=== PATIENT | female | born 1980 | race Caucasian/White ===

== ENCOUNTER 2017-02-23 14:31 | Emergency (ER) | payer OTHER ==
[2017-02-23 14:51] VITALS: BP 143/99
[2017-02-23] MEDS ORDERED: Alum Hydrox/Mag Hydrox/Simeth 30 ML, Lidocaine 2% 15 ML PO ONE ×2 (14:52)
--- NOTE | 2017-02-23 14:53 | EDM.PDOC ---
ED HPI GENERAL MEDICAL PROBLEM - General Chief Complaint: Abdominal Pain Stated Complaint: Epigastric pain Time Seen by Provider: 02/23/17 14:40 Source of Information: Reports: Patient, RN Notes Reviewed History Limitations: Reports: No Limitations - History of Present Illness INITIAL COMMENTS - FREE TEXT/NARRATIVE: 36 year old female presents to the ED for evaluation of epigastric pain. She initially presented to [facility]. She reports seeing a nurse, no provider, and was sent here for cardiac rule out. She's been experiencing epigastric burning that radiates up into her throat for the past few days. The symptoms seem to be worse on an empty stomach and improve with eating. However, they are aggravated by caffeine and spicy foods. She also feels bloated and is "belching" a lot. She has a history of IBS and says she is mildly constipated. Last BM was 1-2 days ago. No fever, chills, nausea, vomiting or diarrhea. She also reports some chest wall tenderness that is reproducible with palpation. This pain also goes into her bilateral axilla. She has no cough, shortness of breath or dyspnea with exertion. She has no history of heart disease. She's never smoked. No history of high cholesterol. She has a history of heart burn and says her symptoms are the same. She's tried Prilosec x2 days and TUMS with minimal improvement. She has a history of MS and was recently started on a new medication which she feels may be upsetting her stomach. - Related Data Allergies Allergy/AdvReac Type Severity Reaction Status Date / Time lactose AdvReac Stomach Verified 02/23/17 14:51 Ache Home Meds: Home Meds Teriflunomide [Aubagio] 14 mg PO DAILY 02/23/17 [History] ED ROS GENERAL - Review of Systems Review Of Systems: See Below Constitutional: Reports: No Symptoms. Denies: Fever, Chills, Diaphoresis HEENT: Denies: Throat Pain, Throat Swelling Respiratory: Reports: No Symptoms. Denies: Shortness of Breath, Cough Cardiovascular: Reports: No Symptoms. Denies: Chest Pain GI/Abdominal: Reports: Abdominal Pain, Constipation. Denies: Diarrhea, Distension, Nausea, Vomiting Musculoskeletal: Reports: Muscle Pain ED EXAM, GI/ABD - Physical Exam Exam: See Below Exam Limited By: No Limitations General Appearance: Alert, WD/WN, No Apparent Distress Respiratory/Chest: No Respiratory Distress, Lungs Clear, Normal Breath Sounds, No Accessory Muscle Use, Other (mild tenderness with palpation to anterior and posterior chest wall. pain is reproducible. patient is able to tolerate the palpation and does not appear in pain. ) Cardiovascular: Normal Peripheral Pulses, Regular Rate, Rhythm, No Edema, No Murmur GI/Abdominal Exam: Normal Bowel Sounds, Soft, No Organomegaly, No Distention, Tender (mild to LUQ and epigastric region) Back Exam: Normal Inspection, Full Range of Motion, Paraspinal Tenderness (left lower chest wall ). No: CVA Tenderness (L), CVA Tenderness (R) Neurological: Alert, Oriented, Normal Cognition EKG INTERPRETATION EKG Date: 02/23/17 Time: 14:59 Rhythm: NSR Rate (Beats/Min): 77 [place]: Normal P-Wave: Present QRS: Normal ST-T: Normal QT: Normal EKG Interpretation Comments: Read by Dr. Hilton. Normal ECG. Course - Vital Signs Last Recorded V/S: Last Vital Signs Temp 98.5 F 02/23/17 14:46 Pulse 88 02/23/17 14:46 Resp 17 02/23/17 14:46 BP 143/99 H 02/23/17 14:46 Pulse Ox 100 02/23/17 14:46 - Orders/Labs/Meds Orders: Active Orders 24 hr Category Date Time Status EKG Documentation Completion [RC] ASDIRECTED Care 02/23/17 14:53 Ordered EKG 12 Lead [EK] Stat Ther 02/23/17 14:52 Ordered Meds: Medications Discontinued Medications Generic Name Dose Route Start Last Admin Trade Name Adriana PRN Reason Stop Dose Admin Al Hydroxide/Mg Hydroxide 30 0 ml 02/23/17 14:52 02/23/17 15:14 ml/ Lidocaine HCl 15 ml PO 02/23/17 14:53 45 ml ONETIME ONE Administration - Re-Assessments/Exams Free Text/Narrative Re-Assessment/Exam: Vitals and EKG normal. Patient was given GI cocktail with improvement in epigastric symptoms. Symptoms are consistent with GERD. Cardiac etiology is unlikely. Offered Rx for PPI but patient wishes to continue with Prilosec and Zantac or tums. She is mostly concerned about the chest wall pain which she says isn't abnormal for her. The pain is mild and reproducible with palpation, indicating musculoskeletal cause. Educated on supportive care and return precautions. Discharge instructions as documented. Departure - Departure Time of Disposition: 15:31 Disposition: Home, Self-Care 01 Condition: Good Clinical Impression: GERD (gastroesophageal reflux disease) Qualifiers: Esophagitis presence: without esophagitis Qualified Code(s): K21.9 - Gastro- esophageal reflux disease without esophagitis Constipation Qualifiers: Constipation type: unspecified constipation type Qualified Code(s): K59.00 - Constipation, unspecified - Discharge Information Instructions: Constipation, Adult Referrals: Christina Calzada PA-C [Primary Care Provider] - Forms: ED Department Discharge Additional Instructions: Continue Prilosec 20mg once a day for 2 weeks Take in the morning on an empty stomach, 1 hour before your first meal Zantac 150mg up to 3 times a day as needed for break through pain Tums as directed Over the counter laxatives/stool softeners to help regulate bowels Return to ER with new or worsening symptoms Follow-up with Christina Calzada in 1-2 weeks for recheck Avoid spicy foods, caffeine, alcohol - My Orders Last 24 Hours: My Active Orders 02/23/17 14:52 EKG 12 Lead [EK] Stat 02/23/17 14:53 EKG Documentation Completion [RC] ASDIRECTED - Assessment/Plan Last 24 Hours: My Active Orders 02/23/17 14:52 EKG 12 Lead [EK] Stat 02/23/17 14:53 EKG Documentation Completion [RC] ASDIRECTED
== END 2017-02-23 15:43 | disposition home or self-care (01) ==
LOC: JD.ED 14:31
DX: K21.9 Gastro-esophageal reflux disease without esophagitis (principal); K59.00 Constipation, unspecified; Z91.011 Allergy to milk products; Z79.899 Other long term (current) drug therapy
CPT/HCPCS: 93005; 99285; A9270; 93010; 99283

== ENCOUNTER 2017-12-13 14:15 | Emergency (ER) | payer OTHER ==
[2017-12-13 14:23] VITALS: BP 134/84
--- NOTE | 2017-12-13 15:28 | EDM.PDOC ---
ED HPI GENERAL MEDICAL PROBLEM - General Chief Complaint: Back Pain or Injury Stated Complaint: UPPER BACK PAIN/L ARM PAIN Time Seen by Provider: 12/13/17 15:08 Source of Information: Reports: Patient, Old Records History Limitations: Reports: No Limitations - History of Present Illness INITIAL COMMENTS - FREE TEXT/NARRATIVE: 37-year-old female presents for evaluation and treatment of reflux symptoms. Patient reports she's had similar symptoms in the past. Reports symptoms started about 4 days ago. She is reporting some pain in the epigastric area and across her upper abdomen. She is also having pain in between her shoulder blades into her left arm. She states that she frequently gets these symptoms with her reflux. She started Zantac and Prilosec for 4 days ago and has not had much relief. Reports in the past she has done well with Protonix. She attempted to see her primary care provider who wanted her checked out due to her left arm and back pain. She does not dose this is cardiac in etiology. She states that she has been belching more than normal. Reports the pain is a 3 out of 10. She reports some anterior chest pain with palpation. No fevers, chills, nausea, vomiting, throat pain or any shortness of breath. Reports past surgical history of a cholecystectomy. No previous EGD. That she has been tested for H. pylori in the past and has been negative. Treatments [employer]: Reports: Other (see below) Other Treatments [employer]: took motrin for pain control Upper Back Pain Score (Numeric/FACES): 3 - Related Data Allergies Allergy/AdvReac Type Severity Reaction Status Date / Time lactose AdvReac Stomach Verified 02/23/17 14:51 Ache Home Meds: Home Meds Teriflunomide [Aubagio] 14 mg PO DAILY 02/23/17 [History] Calcium Carbonate [Calcium] 600 mg PO DAILY 12/13/17 [History] Cholecalciferol (Vitamin D3) [Vitamin D3] 50,000 mg PO WEEKLY 12/13/17 [History] Cyanocobalamin (Vitamin B12) [Vitamin B12] 1,000 mg INJECT ASDIRECTED 12/13/17 [ History] Pantoprazole Sodium [Protonix] 40 mg PO DAILY #30 tablet. 12/13/17 [Rx] Timolol [Betimol] 1 drop TOP ASDIRECTED 09/14/18 [History] Past Medical History HEENT History: Reports: Other (See Below) Other HEENT History: retinal tear. vitreous detachment Respiratory History: Reports: Other (See Below) Other Respiratory History: hayfever Gastrointestinal History: Reports: GERD, Irritable Bowel Syndrome Musculoskeletal History: Reports: Other (See Below) Other Musculoskeletal History: fractured left ankle surgery Neurological History: Reports: MS - Past Surgical History GI Surgical History: Reports: Cholecystectomy Social & Family History - Family History Family Medical History: Noncontributory - Tobacco Use Smoking Status *Q: Never Smoker - Caffeine Use Caffeine Use: Reports: Soda - Recreational Drug Use Recreational Drug Use: No ED ROS GENERAL - Review of Systems Review Of Systems: See Below Constitutional: Denies: Fever, Chills HEENT: Denies: Throat Pain Respiratory: Denies: Shortness of Breath Cardiovascular: Denies: Chest Pain GI/Abdominal: Reports: Abdominal Pain (Epigastric and upper abdomen). Denies: Nausea, Vomiting Musculoskeletal: Reports: Arm Pain (left arm), Back Pain (pain in between shoulder blades and into left arm) ED EXAM, UPPER BACK/NECK PAIN - Physical Exam Exam: See Below Exam Limited By: No Limitations General Appearance: Alert, WD/WN, No Apparent Distress Throat/Mouth Exam: Normal Inspection, Normal Lips, Normal Teeth Neck Exam: Non-Tender Cardiovascular/Respiratory: Regular Rate, Rhythm, No M/R/G, Normal Peripheral Pulses GI/Abdominal: Soft, Non-Tender Neurologic: Alert, Normal Mood/Affect Psychiatric: Normal Affect, Normal Mood Skin Exam: Normal Color, Warm/Dry EKG INTERPRETATION EKG Date: 12/13/17 Time: 15:25 Rhythm: NSR Rate (Beats/Min): 72 [place]: Normal P-Wave: Present QRS: Normal ST-T: Normal QT: Normal EKG Interpretation Comments: Normal sinus rhythm at 72 bpm. No acute changes. Reviewed by myself and Dr. Griffiths. Course - Vital Signs Last Recorded V/S: Last Vital Signs Temp 96.9 F 12/13/17 14:21 Pulse 73 12/13/17 14:21 Resp 20 12/13/17 14:21 BP 134/84 12/13/17 14:21 Pulse Ox 99 12/13/17 14:21 - Orders/Labs/Meds Orders: Active Orders 24 hr Category Date Time Status EKG 12 Lead [EKG Documentation Completion] [RC] STAT Care 12/13/17 15:12 Active - Re-Assessments/Exams Free Text/Narrative Re-Assessment/Exam: 12/13/17 15:32 Reviewed the EKG with the patient. I do feel this is GERD causing her symptoms. She reports similar symptoms in the past. I will put her on 40 protonic [place]. I'll have her start Prilosec. Follow-up with her primary care provider if not much better within 2 weeks. Discharge instructions as documented. Departure - Departure Time of Disposition: 15:33 Disposition: Home, Self-Care 01 Condition: Good Clinical Impression: GERD (gastroesophageal reflux disease) Qualifiers: Esophagitis presence: without esophagitis Qualified Code(s): K21.9 - Gastro- esophageal reflux disease without esophagitis - Discharge Information *PRESCRIPTION DRUG MONITORING PROGRAM REVIEWED*: No *COPY OF PRESCRIPTION DRUG MONITORING REPORT IN PATIENT CULLEN: No Prescriptions: Pantoprazole Sodium [Protonix] 40 mg PO DAILY #30 tablet. Instructions: Gastroesophageal Reflux Disease, Adult, [id number] Referrals: Christina Calzada PA-C [Primary Care Provider] - Forms: ED Department Discharge Additional Instructions: Stop the Prilosec. Start Protonix 1 tab daily. may continue with the Zantac. may take [id number] Tums or Rolaids for additional relief in the meantime. Recommend avoiding spicy foods, alcohol and chocolate as this can worsen her pain. Follow-up with your primary care provider within 2 weeks for recheck of your symptoms. Please return to the ER if your symptoms change or worsen. - My Orders Last 24 Hours: My Active Orders 12/13/17 15:12 EKG 12 Lead [EKG Documentation Completion] [RC] STAT - Assessment/Plan Last 24 Hours: My Active Orders 12/13/17 15:12 EKG 12 Lead [EKG Documentation Completion] [RC] STAT
== END 2017-12-13 16:30 | disposition home or self-care (01) ==
LOC: JD.ED 14:15
DX: K21.9 Gastro-esophageal reflux disease without esophagitis (principal); Z91.011 Allergy to milk products; Z79.899 Other long term (current) drug therapy
CPT/HCPCS: 93005; 93010; 99283-25; 99284

== ENCOUNTER 2018-08-21 07:34 | Day surgery (SDC) | payer OTHER ==
[~2018-08-21 07:34] MED LIST: Cefuroxime 10 MG/ML SYRINGE EYERT SCH; Lidocaine 1% PF 2 ML SDV INJECT SCH; Pilocarpine 4% Ophth Soln 15 ML Bot EYERT SCH
[2018-08-21] MEDS: Polymyxin B/Trimethoprim 10 ML Bottle EYERT SCH ×3 (07:54→09:59)
[2018-08-21] MEDS: Brimonidine 0.2% Ophth Soln 5 ML Bottle EYERT SCH ×3 (07:59→09:59)
--- NOTE | 2018-08-21 08:00 | PCM.PREANE ---
Preanesthetic Assessment - Anesthesia/Transfusion/Family Hx Anesthesia History: Prior Anesthesia Without Reaction Family History of Anesthesia Reaction: No Transfusion History: No Prior Transfusion(s) Intubation History: Unknown - Review of Systems General: No Symptoms Pulmonary: No Symptoms Cardiovascular: No Symptoms Gastrointestinal: No Symptoms Neurological: Pre-Existing Deficit Other: Reports: None - Physical Assessment NPO Status Date: 08/20/18 NPO Status Time: 10:00 Height: 1.78 m Weight: 104.647 kg ASA Class: 2 Mental Status: Alert & Oriented x3 Airway Class: Mallampati = 1 Dentition: Reports: Normal Dentition ROM/Head Extension: Full Lungs: Clear to Auscultation, Normal Respiratory Effort Cardiovascular: Regular Rate, Regular Rhythm, No Murmurs - Allergies Allergies/Adverse Reactions: Allergies Allergy/AdvReac Type Severity Reaction Status Date / Time erythromycin base Allergy Cannot Verified 08/20/18 13:45 Remember lactose AdvReac Stomach Verified 08/20/18 13:45 Ache - Anesthesia Plan Pre-Op Medication Ordered: None - Acknowledgements Anesthesia Type Planned: MAC Pt an Appropriate Candidate for the Planned Anesthesia: Yes Alternatives and Risks of Anesthesia Discussed w Pt/Guardian: Yes Pt/Guardian Understands and Agrees with Anesthesia Plan: Yes Additional Comments: MH - diagnosed [facility]- stable PreAnesthesia Questionnaire HEENT History: Reports: Other (See Below) Other HEENT History: retinal tear. vitreous detachment Respiratory History: Reports: Other (See Below) Other Respiratory History: hayfever Gastrointestinal History: Reports: GERD, Irritable Bowel Syndrome Musculoskeletal History: Reports: Other (See Below) Other Musculoskeletal History: fractured left ankle surgery Neurological History: Reports: MS - Past Surgical History GI Surgical History: Reports: Cholecystectomy - HOME MEDS Home Medications: Home Meds Teriflunomide [Aubagio] 14 mg PO DAILY 02/23/17 [History] Cholecalciferol (Vitamin D3) [Vitamin D3] 50,000 mg PO WEEKLY 12/13/17 [History] Cyanocobalamin (Vitamin B12) [Vitamin B12] 1,000 mg INJECT Q30D 12/13/17 [ History] Timolol [Betimol] 1 drop TOP ASDIRECTED 12/13/17 [History] Norethindrone-Ethinyl Estrad [Nortrel 1-35 28 Tablet] 1 tab PO DAILY 08/20/18 [ History] - CURRENT (IN HOUSE) MEDS Current Meds: Current Medications Brimonidine Tartrate (Alphagan 0.2% Ophth Soln) 0 ml EYERT ASDIRECTED LISA Stop: 08/21/18 18:00 Cefuroxime Sodium (Zinacef) 0 mg EYERT ASDIRECTED LISA Stop: 08/21/18 18:00 Lidocaine HCl (Xylocaine-Mpf 1%) 1 ml INJECT ASDIRECTED LISA Stop: 08/21/18 18:00 Phenylephrine HCl (Ever-Synephrine 2.5% Ophth Soln) 0 ml EYERT ASDIRECTED LISA Stop: 08/21/18 18:00 Pilocarpine HCl (Pilocar 4% Ophth Soln) 0 ml EYERT ASDIRECTED LISA Stop: 08/21/18 18:00 Polymyxin/Trimethoprim Sulfate (Polytrim Ophth Soln) 0 ml EYERT ASDIRECTED LISA Stop: 08/21/18 18:00 Last Admin: 08/21/18 07:54 Dose: 1 drop Tetracaine HCl (Tetracaine 0.5% Steri-Unit Radha) 0 ml EYERT ASDIRECTED LISA Stop: 08/21/18 18:00 Tropicamide (Mydriacyl 1% Ophth Soln) 0 ml EYERT ASDIRECTED LISA Stop: 08/21/18 18:00
[2018-08-21] MEDS: Phenylephrine 2.5% Ophth Soln 2 ML Bot EYERT SCH ×5 (08:04→09:43)
[2018-08-21] MEDS: Tropicamide 1% Ophth Soln 15 ML Bottle EYERT SCH ×4 (08:09→08:49)
[2018-08-21] MEDS: Tetracaine HCl/PF 0.5% 4 ML Bottle EYERT SCH ×4 (09:27→09:50)
[2018-08-21 10:15] VITALS: BP 135/83
== END 2018-08-21 10:10 | disposition home or self-care (01) ==
LOC: JD.SDS 07:34
PROVIDERS: ATTEND Ophthalmology
DX: H25.033 Anterior subcapsular polar age-related cataract, bilateral (principal); H25.043 Posterior subcapsular polar age-related cataract, bilateral; H40.042 Steroid responder, left eye; H31.091 Other chorioretinal scars, right eye; H43.811 Vitreous degeneration, right eye; H43.311 Vitreous membranes and strands, right eye; K58.9 Irritable bowel syndrome, unspecified; G35 Multiple sclerosis; Z88.1 Allergy status to other antibiotic agents; Z91.018 Allergy to other foods; Z79.899 Other long term (current) drug therapy; Z98.890 Other specified postprocedural states
CPT/HCPCS: 66984; C1780; J0697; J2001

== ENCOUNTER 2018-11-20 07:04 | Day surgery (SDC) | payer OTHER ==
[~2018-11-20 07:04] MED LIST changes: +Cefuroxime 10 MG/ML SYRINGE EYELF SCH; -Cefuroxime 10 MG/ML SYRINGE EYERT SCH; +Pilocarpine 4% Ophth Soln 15 ML Bot EYELF SCH; -Pilocarpine 4% Ophth Soln 15 ML Bot EYERT SCH
[2018-11-20] MEDS: Polymyxin B/Trimethoprim 10 ML Bottle EYELF SCH ×3 (07:29→09:13)
[2018-11-20] MEDS: Brimonidine 0.2% Ophth Soln 15 ML Bottle EYELF SCH ×3 (07:33→09:13)
[2018-11-20] MEDS: Phenylephrine 2.5% Ophth Soln 2 ML Bot EYELF SCH ×5 (07:37→08:47)
[2018-11-20] MEDS: Tropicamide 1% Ophth Soln 15 ML Bottle EYELF SCH ×5 (07:41→08:24)
--- NOTE | 2018-11-20 07:41 | PCM.PREANE ---
Preanesthetic Assessment - Anesthesia/Transfusion/Family Hx Anesthesia History: Prior Anesthesia Without Reaction Family History of Anesthesia Reaction: No Transfusion History: No Prior Transfusion(s) Intubation History: Unknown - Review of Systems General: No Symptoms Pulmonary: No Symptoms Cardiovascular: No Symptoms Gastrointestinal: No Symptoms Neurological: No Symptoms Other: Reports: None - Physical Assessment NPO Status Date: 11/19/18 NPO Status Time: 20:00 Vital Signs: Last Vital Signs Temp 36.3 C 11/20/18 07:15 Pulse 79 11/20/18 07:15 Resp 16 11/20/18 07:15 BP 146/83 H 11/20/18 07:15 Pulse Ox 97 11/20/18 07:15 Height: 1.78 m Weight: 99.79 kg ASA Class: 1 Mental Status: Alert & Oriented x3 Airway Class: Mallampati = 1 Dentition: Reports: Normal Dentition Thyro-Mental Finger Breadths: 3 Mouth Opening Finger Breadths: 3 ROM/Head Extension: Full Lungs: Clear to Auscultation, Normal Respiratory Effort Cardiovascular: Regular Rate, Regular Rhythm - Allergies Allergies/Adverse Reactions: Allergies Allergy/AdvReac Type Severity Reaction Status Date / Time erythromycin base Allergy Cannot Verified 11/19/18 14:16 Remember lactose AdvReac Stomach Verified 11/19/18 14:16 Ache - Acknowledgements Anesthesia Type Planned: MAC Pt an Appropriate Candidate for the Planned Anesthesia: Yes Alternatives and Risks of Anesthesia Discussed w Pt/Guardian: Yes Pt/Guardian Understands and Agrees with Anesthesia Plan: Yes PreAnesthesia Questionnaire HEENT History: Reports: Other (See Below) Other HEENT History: retinal tear. vitreous detachment Cardiovascular History: Reports: None Respiratory History: Reports: Other (See Below) Other Respiratory History: hayfever Gastrointestinal History: Reports: GERD (occas heartburn), Irritable Bowel Syndrome Genitourinary History: Reports: None LMP (Approximate): Other (See Below) (LMP 09/16/18) Musculoskeletal History: Reports: Other (See Below) Other Musculoskeletal History: fractured left ankle surgery Neurological History: Reports: MS (diagnosis 4 years ago) - Past Surgical History HEENT Surgical History: Reports: Cataract Surgery, Retinal GI Surgical History: Reports: Cholecystectomy Musculoskeletal Surgical History: Reports: Other (See Below) ((L) ankle) - SUBSTANCE USE Smoking Status *Q: Never Smoker - HOME MEDS Home Medications: Home Meds Teriflunomide [Aubagio] 14 mg PO DAILY 02/23/17 [History] Cholecalciferol (Vitamin D3) [Vitamin D3] 50,000 mg PO WEEKLY 12/13/17 [History] Cyanocobalamin (Vitamin B12) [Vitamin B12] 1,000 mg INJECT Q30D 12/13/17 [ History] Timolol [Betimol] 1 drop TOP ASDIRECTED 12/13/17 [History] Norethindrone-Ethinyl Estrad [Nortrel 1-35 28 Tablet] 1 tab PO DAILY 08/20/18 [ History] - CURRENT (IN HOUSE) MEDS Current Meds: Current Medications Brimonidine Tartrate (Brimonidine Tartrate 0.2% Ophth Soln) 0 ml EYELF ASDIRECTED LISA Stop: 11/20/18 18:00 Last Admin: 11/20/18 07:33 Dose: 1 drop Cefuroxime Sodium (Zinacef) 0 mg EYELF ASDIRECTED LISA Stop: 11/20/18 18:00 Lidocaine HCl (Xylocaine-Mpf 1%) 0 ml INJECT ASDIRECTED LISA Stop: 11/20/18 18:00 Phenylephrine HCl (Ever-Synephrine 2.5% Ophth Soln) 0 ml EYELF ASDIRECTED LISA Stop: 11/20/18 18:00 Pilocarpine HCl (Pilocar 4% Ophth Soln) 0 ml EYELF ASDIRECTED LISA Stop: 11/20/18 18:00 Polymyxin/Trimethoprim Sulfate (Polytrim Ophth Soln) 0 ml EYELF ASDIRECTED LISA Stop: 11/20/18 18:00 Last Admin: 11/20/18 07:29 Dose: 1 drop Tetracaine HCl (Tetracaine 0.5% Steri-Unit Radha) 0 ml EYELF ASDIRECTED LISA Stop: 11/20/18 18:00 Tropicamide (Mydriacyl 1% Ophth Soln) 0 ml EYELF ASDIRECTED LISA Stop: 11/20/18 18:00
[2018-11-20] MEDS: Tetracaine HCl/PF 0.5% 4 ML Bottle EYELF SCH ×2 (08:39→08:54)
--- NOTE | 2018-11-20 09:18 | PCM48HPAN ---
Post Anesthesia Note - EVALUATION WITHIN 48HRS OF ANESTHETIC Vital Signs in Normal Range: Yes Patient Participated in Evaluation: Yes Respiratory Function Stable: Yes Airway Patent: Yes Cardiovascular Function Stable: Yes Hydration Status Stable: Yes Pain Control Satisfactory: Yes Nausea and Vomiting Control Satisfactory: Yes Mental Status Recovered: Yes Vital Signs: Last Vital Signs Temp 36.3 C 11/20/18 07:15 Pulse 79 11/20/18 07:15 Resp 16 11/20/18 07:15 BP 146/83 H 11/20/18 07:15 Pulse Ox 97 11/20/18 07:15
[2018-11-20 09:25] VITALS: BP 150/86
== END 2018-11-20 09:23 | disposition home or self-care (01) ==
LOC: JD.SDS 07:04
PROVIDERS: ATTEND Ophthalmology
DX: H25.812 Combined forms of age-related cataract, left eye (principal); H43.813 Vitreous degeneration, bilateral; H31.091 Other chorioretinal scars, right eye; K58.9 Irritable bowel syndrome, unspecified; G35 Multiple sclerosis; Z88.1 Allergy status to other antibiotic agents; Z91.018 Allergy to other foods; Z98.41 Cataract extraction status, right eye; Z96.1 Presence of intraocular lens; Z79.899 Other long term (current) drug therapy
CPT/HCPCS: 66984; J0697; J2001; V2632

== ENCOUNTER 2019-07-12 13:01 | Emergency (ER) | payer OTHER ==
[2019-07-12 13:19] VITALS: PULSE 68
--- NOTE | 2019-07-12 13:48 | EDM.PDOC ---
ED HPI GENERAL MEDICAL PROBLEM - General Chief Complaint: Neuro Symptoms/Deficits Stated Complaint: BLURRED VISION Time Seen by Provider: 07/12/19 13:40 Source of Information: Reports: Patient History Limitations: Reports: No Limitations - History of Present Illness INITIAL COMMENTS - FREE TEXT/NARRATIVE: Double vision Onset: Today Duration: Intermittent, Waxing/Waning Quality: Denies: Ache, Pressure, Sharp Severity: Mild Improves with: Reports: None Worsens with: Reports: None Context: Denies: Activity Associated Symptoms: Denies: Confusion, Fever/Chills, Loss of Appetite, Nausea/ Vomiting, Rash, Shortness of Breath, Syncope (Patient with history of multiple sclerosis presents with blurry/double vision at a distance. Onset this morning. Is been quite sometime since she has had any similar symptoms. She has been followed and seen by the neurologist in [place] Dr. De Anda. No blackout spots no vision loss no headaches, no fevers chills or sweats no swallowing difficulty no ringing in the ears no altered mental status, no upper or lower extremity weakness no fall trauma or injury, does not wear glasses or contacts, not associated with chest pain or palpitations. No balance problems. Other gross weakness the upper lower extremities. He sore throat runny nose smell or taste problems no coughing no shortness of breath no nausea vomiting or diarrhea.), Weakness - Related Data Allergies Allergy/AdvReac Type Severity Reaction Status Date / Time erythromycin base Allergy Cannot Verified 11/19/18 14:16 Remember lactose AdvReac Stomach Verified 11/19/18 14:16 Ache Home Meds: Home Meds Cholecalciferol (Vitamin D3) [Vitamin D3] 50,000 mg PO WEEKLY 12/13/17 [History] Cyanocobalamin (Vitamin B12) [Vitamin B12] 1,000 mg INJECT Q30D 12/13/17 [ History] Timolol [Betimol] 1 drop TOP ASDIRECTED 12/13/17 [History] Norethindrone-Ethinyl Estrad [Nortrel 1-35 28 Tablet] 1 tab PO DAILY 08/20/18 [ History] Past Medical History HEENT History: Reports: Other (See Below) Other HEENT History: retinal tear. vitreous detachment Cardiovascular History: Reports: None Respiratory History: Reports: Other (See Below) Other Respiratory History: hayfever Gastrointestinal History: Reports: GERD, Irritable Bowel Syndrome Genitourinary History: Reports: None Musculoskeletal History: Reports: Other (See Below) Other Musculoskeletal History: fractured left ankle surgery Neurological History: Reports: MS - Infectious Disease History Infectious Disease History: Reports: Chicken Pox - Past Surgical History HEENT Surgical History: Reports: Cataract Surgery, Retinal GI Surgical History: Reports: Cholecystectomy Musculoskeletal Surgical History: Reports: Other (See Below) Social & Family History - Family History Family Medical History: Noncontributory - Tobacco Use Smoking Status *Q: Never Smoker Second Hand Smoke Exposure: No - Caffeine Use Caffeine Use: Reports: Soda ED ROS GENERAL - Review of Systems Review Of Systems: See Below Constitutional: Denies: Fever, Chills, Malaise, Weakness HEENT: Reports: Vision Change. Denies: Eye Discharge, Eye Pain, Glasses, Vertigo Respiratory: Reports: No Symptoms. Denies: Shortness of Breath Cardiovascular: Reports: No Symptoms Endocrine: Denies: Fatigue GI/Abdominal: Reports: No Symptoms : Reports: No Symptoms Musculoskeletal: Reports: No Symptoms Skin: Reports: No Symptoms Neurological: Denies: Dizziness, Headache, Numbness, Paresthesia, Pre-Existing Deficit, Seizure, Syncope, Tingling, Tremors, Trouble Speaking, Difficulty Walking, Weakness, Change in Speech, Gait Disturbance Psychiatric: Reports: No Symptoms ED EXAM, NEURO - Physical Exam Exam: See Below Exam Limited By: No Limitations General Appearance: Alert, WD/WN, No Apparent Distress Eye Exam: Bilateral Eye: EOMI, Normal Fundi, Normal Inspection, PERRL (No gross visual field deficit no nystagmus noted.) Ears: Normal External Exam Nose: Normal Inspection, Normal Mucosa Throat/Mouth: Normal Inspection, Normal Oropharynx Head Exam: Atraumatic Neck: Normal Inspection, Supple, Non-Tender, Full Range of Motion Respiratory/Chest: No Respiratory Distress, Lungs Clear Cardiovascular: Normal Peripheral Pulses, Regular Rate, Rhythm GI/Abdominal: Normal Bowel Sounds Neurological: Alert, Normal Mood/Affect, Normal Dorsiflexion, CN II-XII Intact, Normal Plantar Flexion, Normal Gait, Normal Reflexes, No Motor/Sensory Deficits , Oriented x 3. No: Ataxia, Abnormal Finger to Nose, Difficulty Walking Back Exam: Normal Inspection Extremities: Normal Inspection Psychiatric: Normal Affect Skin Exam: Warm, Dry. No: Rash Course - Vital Signs Last Recorded V/S: Last Vital Signs Temp 97.3 F 07/12/19 13:16 Pulse 68 07/12/19 13:16 Resp 16 07/12/19 13:16 BP 145/94 H 07/12/19 13:16 Pulse Ox 99 07/12/19 13:16 - Orders/Labs/Meds Labs: Laboratory Tests 07/12/19 Range/Units 14:00 Urine Color Light yellow (Yellow) Urine Appearance Clear (Clear) Urine pH 7.0 (5.0-8.0) Ur Specific [place] 1.020 (1.005-1.030) Urine Protein Negative (Negative) Urine Glucose (UA) Negative (Negative) Urine Ketones Negative (Negative) Urine Occult Blood Negative (Negative) Urine Nitrite Negative (Negative) Urine Bilirubin Negative (Negative) Urine Urobilinogen 0.2 (0.2-1.0) Ur Leukocyte Esterase Negative (Negative) Urine RBC Not seen (0-5) /hpf Urine WBC Not seen (0-5) /hpf Ur Squamous Epith Cells 5-10 H (0-5) /hpf Urine Bacteria Not seen (FEW) /hpf Urine Mucus Not seen (FEW) /hpf - Re-Assessments/Exams Free Text/Narrative Re-Assessment/Exam: 07/12/19 14:24 Discussed the case with the neurologist on-call at [facility] Dr. Anderson , and did not recommend any steroids at this time, very slight amount of diplopia at a distance but otherwise no focal neurologic changes. Recommend that she contact her neurologist tomorrow to see if she may benefit from other treatments but he thought that based on the recent immune therapy she had that we better to hold off on any steroids for now. Free Text/Narrative Re-Assessment/Exam: 07/12/19 15:38 Urinalysis is negative. Will discharge home, will have her call her neurologist tomorrow for recheck evaluation, return if any vision loss, worsening weakness, worsening vision problems, headaches, worse Free Text/Narrative Re-Assessment/Exam: 07/12/19 15:40 Very minimal symptoms at present. Do not feel the need for MRI of the brain, no focal neurologic changes otherwise noted. No gross extraocular muscle weakness noted. No gross funduscopic changes noted on my eye exam. Do not feel that there is an acute stroke, suspect it is not a mild MS flare and screen a urine which was negative for any of occult infection and did not see any signs of any infection or other stressors at present. Reviewed the case with neurology on-call, recommend holding off on any steroids or any other change in medications. Departure - Departure Time of Disposition: 15:38 Disposition: Home, Self-Care 01 Condition: Good Clinical Impression: Multiple sclerosis - Discharge Information Instructions: Multiple Sclerosis Referrals: Christina Calzada PA-C [Primary Care Provider] - 1 Day (Call Dr. De Anda tomorrow) Forms: ED Department Discharge Additional Instructions: Call and talk to neurologist tomorrow. Return if any worsening vision, headaches, weakness, slurred speech, balance problems, fevers, muscle aches, worse. Sepsis Event Note - Evaluation Sepsis Screening Result: No Definite Risk - Focused Exam Vital Signs: Vital Signs Temp Pulse Resp BP Pulse Ox 07/12/19 13:16 97.3 F 68 16 145/94 H 99 Date Exam was Performed: 07/12/19 Time Exam was Performed: 15:34
[2019-07-12 16:24] VITALS: BP 126/92
== END 2019-07-12 15:46 | disposition home or self-care (01) ==
LOC: JD.ED 13:01
DX: G35 Multiple sclerosis (principal); Z88.1 Allergy status to other antibiotic agents; Z91.018 Allergy to other foods
CPT/HCPCS: 81001; 99283; 99284

== ENCOUNTER 2019-08-18 16:17 | Observation (INO) | payer OTHER ==
--- NOTE | 2019-08-18 17:00 | EDM.PDOC ---
ED HPI GENERAL MEDICAL PROBLEM - General Chief Complaint: Lower Extremity Injury/Pain Stated Complaint: [facility] Time Seen by Provider: 08/18/19 16:18 Source of Information: Reports: Patient, RN Notes Reviewed History Limitations: Reports: No Limitations - History of Present Illness INITIAL COMMENTS - FREE TEXT/NARRATIVE: The patient is a 39-year-old female who presents to the ED for evaluation of a left ankle injury. The patient was brought in by [facility]. The patient notes that she was walking on a gravel road, and went downhill, ended up slipping, and then fell while going downhill on a gravel road. Patient states she heard a few couple of pops/snapping sounds. She noted immediate pain into the left ankle after this. She notes that there is pain on bilateral portions of the ankle it is very hard to move her foot and up and down motion. She states she still can wiggle her toes, and is not having any numbness and tingling so to the injury. She does note that she has had prior surgical repair to the same ankle. Ambulance did give her 50 mcg of fentanyl prior to arrival to the ER. Patient notes a history of MS, and states that she is taking some medications that are making her immunosuppressed, her doctors are Dr. De Anda, and Christina Calzada. She states that she last ate at around 12:30 PM today. Left Ankle Pain Score (Numeric/FACES): 8 - Related Data Allergies Allergy/AdvReac Type Severity Reaction Status Date / Time erythromycin base Allergy Severe Cannot Verified 08/18/19 20:23 Remember lactose AdvReac Severe Stomach Verified 08/18/19 20:23 Ache Home Meds: Home Meds Cholecalciferol (Vitamin D3) [Vitamin D3] 50,000 mg PO WEEKLY 12/13/17 [History] Cyanocobalamin (Vitamin B12) [Vitamin B12] 1,000 mg INJECT Q30D 12/13/17 [ History] Norethindrone-Ethin. Estradiol [Nortrel 1-35 28 Tablet] 1 tab PO DAILY 08/20/18 [History] Brimonidine Tartrate/Timolol [Combigan 0.2%-0.5% Eye Drops] 1 drop EYEBOTH BID 08/18/19 [History] Cetirizine HCl/Pseudoephedrine [ZyrTEC-D] 1 tab PO DAILY PRN 08/18/19 [History] Cladribine [Mavenclad] 10 mg PO DAILY 08/18/19 [History] Past Medical History HEENT History: Reports: Other (See Below) Other HEENT History: retinal tear. vitreous detachment Respiratory History: Reports: Other (See Below) Other Respiratory History: hayfever Gastrointestinal History: Reports: GERD, Irritable Bowel Syndrome Musculoskeletal History: Reports: Other (See Below) Other Musculoskeletal History: fractured left ankle surgery Neurological History: Reports: MS - Infectious Disease History Infectious Disease History: Reports: Chicken Pox - Past Surgical History HEENT Surgical History: Reports: Cataract Surgery, Retinal GI Surgical History: Reports: Cholecystectomy Musculoskeletal Surgical History: Reports: Other (See Below) Other Musculoskeletal Surgeries/Procedures:: fractured left ankle, had pins placed; have been subsequently removed Social & Family History - Family History Family Medical History: Noncontributory - Tobacco Use Smoking Status *Q: Never Smoker Second Hand Smoke Exposure: No - Caffeine Use Caffeine Use: Reports: Soda - Recreational Drug Use Recreational Drug Use: No Review of Systems - Review of Systems Review Of Systems: Comprehensive ROS is negative, except as noted in HPI. ED EXAM, GENERAL - Physical Exam Exam: See Below Exam Limited By: No Limitations General Appearance: Alert, WD/WN, No Apparent Distress Throat/Mouth: Normal Inspection, Normal Lips, Normal Teeth, Normal Gums, Normal Oropharynx, Normal Voice, No Airway Compromise Head: Atraumatic, Normocephalic Respiratory/Chest: No Respiratory Distress, Lungs Clear, Normal Breath Sounds, No Accessory Muscle Use, Chest Non-Tender Cardiovascular: Normal Peripheral Pulses, Regular Rate, Rhythm, No Murmur Peripheral Pulses: 3+: Dorsalis Pedis (L), Dorsalis Pedis (R) GI/Abdominal: Normal Bowel Sounds, Soft, Non-Tender, No Distention, No Mass Extremities: Normal Inspection, Limited Range of Motion (of left ankle d/t injury and pain, pain with dorsi/plantar flexion) Neurological: Alert, Oriented, Normal Cognition, No Motor/Sensory Deficits Psychiatric: Normal Affect, Normal Mood Skin Exam: Warm, Dry, Intact, Normal Color, No Rash ED TRAUMA EXTREMITY PROCEDURES - Splinting Left Lower Extremity Splint Site: left ankle Pre-Procedure NV Status: Normal Post-Procedure NV Status: Normal Splint Material: Fiberglass Splint Design: Posterior Applied & Form Fitted By: Provider, Nurse Provider Post-Splint Application NV Check: NV Status Normal, Good Position Complications: No Course - Vital Signs Last Recorded V/S: Last Vital Signs Temp 97.7 F 08/18/19 19:59 Pulse 87 08/18/19 19:59 Resp 16 08/18/19 19:59 BP 120/84 08/18/19 19:59 Pulse Ox 99 08/18/19 19:59 - Orders/Labs/Meds Orders: Active Orders 24 hr Category Date Time Status Admission Status [Patient Status] [ADT] Routine ADT 08/18/19 17:14 Active Medication Orders Acetaminophen (Tylenol) 650 mg PO Q8H PRN PRN Reason: Pain Acetaminophen/Codeine Phosphate (Tylenol With Codeine No.3 300mg/30mg) 1 tab PO Q8H PRN PRN Reason: pain moderate Last Admin: 08/18/19 22:31 Dose: 1 tab Enoxaparin Sodium (Lovenox) 40 mg SUBCUT DAILY ONE Stop: 08/19/19 21:00 Morphine Sulfate (Morphine) 2 mg IVPUSH Q4H PRN PRN Reason: pain severe Ondansetron HCl (Zofran) 4 mg IVPUSH Q8H PRN PRN Reason: Nausea Meds: Medications Generic Name Dose Route Start Last Admin Trade Name Freq PRN Reason Stop Dose Admin Acetaminophen 650 mg 08/18/19 20:59 Tylenol PO Q8H PRN Pain Acetaminophen/Codeine Phosphate 1 tab 08/18/19 20:59 08/18/19 22:31 Tylenol With Codeine No.3 300mg/30mg PO 1 tab Q8H PRN Administration pain moderate Enoxaparin Sodium 40 mg 08/19/19 20:59 Lovenox SUBCUT 08/19/19 21:00 DAILY ONE Morphine Sulfate 2 mg 08/18/19 20:59 Morphine IVPUSH Q4H PRN pain severe Ondansetron HCl 4 mg 08/18/19 20:59 Zofran IVPUSH Q8H PRN Nausea Discontinued Medications Generic Name Dose Route Start Last Admin Trade Name Freq PRN Reason Stop Dose Admin Hydromorphone HCl 1 mg 08/18/19 17:10 08/18/19 17:16 Dilaudid IVPUSH 08/18/19 17:11 1 mg ONETIME ONE Administration Hydromorphone HCl 1 mg 08/18/19 19:00 08/18/19 19:33 Dilaudid IVPUSH 08/18/19 19:01 1 mg ONETIME ONE Administration Ondansetron HCl 4 mg 08/18/19 17:10 08/18/19 17:15 Zofran IVPUSH 08/18/19 17:11 4 mg ONETIME ONE Administration - Re-Assessments/Exams Free Text/Narrative Re-Assessment/Exam: 08/18/19 17:06 Patient presents to the ED for the evaluation of her ankle injury. I was able to talk with Dr. Powers about the fracture, she has a distal fibula and tibia fracture, that is mildly displaced with angulation, and the fibula fracture appears to comminuted with mild displacement and angulation. Dr. Powers would like a posterior slab splint placed, have her admitted to observation, for fixation tomorrow. I will consult Dr. Avendano to see if she would like to help facilitate the admission. 08/18/19 18:31 The official read on the x-ray demonstrates the distal tibia and fibular fractures near the diaphyseal and metaphyseal junctions. Fracture show mild displacement and angulation. Departure - Departure Time of Disposition: 17:30 Disposition: Admitted As Inpatient 68 Clinical Impression: Fracture of tibia AND fibula - Discharge Information *PRESCRIPTION DRUG MONITORING PROGRAM REVIEWED*: No *COPY OF PRESCRIPTION DRUG MONITORING REPORT IN PATIENT CULLEN: No Sepsis Event Note - Evaluation Sepsis Screening Result: No Definite Risk - Focused Exam Vital Signs: Vital Signs Temp Pulse Resp BP Pulse Ox 08/18/19 16:18 98.3 F 95 20 127/88 99 Date Exam was Performed: 08/18/19 Time Exam was Performed: 22:45 - My Orders Last 24 Hours: My Active Orders 08/18/19 17:14 Admission Status [Patient Status] [ADT] Routine - Assessment/Plan Last 24 Hours: My Active Orders 08/18/19 17:14 Admission Status [Patient Status] [ADT] Routine
[2019-08-18] MEDS ORDERED: HYDROmorphone 1 MG/ML Syringe IVPUSH ONE ×2 (17:10→19:00)
[2019-08-18] MEDS ORDERED: Ondansetron 4 MG/2 ML SDV IVPUSH ONE (17:10)
--- NOTE | 2019-08-18 17:52 | CR ---
Left ankle: 3 views left ankle were obtained. Angulated and mildly displaced fractures are seen within the distal tibia and distal fibula near the diaphyseal and metaphyseal junctions. Large plantar spur is noted. Diffuse soft tissue swelling is seen. Bony density is noted off the inferior tip of the fibula which is felt compatible with an old injury. Impression: 1. Distal tibia and fibular fractures near the diaphyseal and metaphyseal junctions. Fractures show mild displacement and angulation. 2. Other findings believed to be incidental as described above. Diagnostic code #3 This report was dictated in [facility]
[2019-08-18] MEDS ORDERED: Morphine 2 MG/ML SYRINGE IVPUSH PRN (20:59)
[2019-08-18] MEDS ORDERED: Ondansetron 4 MG/2 ML SDV IVPUSH PRN (20:59)
[2019-08-18] MEDS ORDERED: Acetaminophen 325 MG Tab PO PRN (20:59)
--- NOTE | 2019-08-18 22:13 | PCM.HP.2 ---
H&P History of Present Illness - General Date of Service: 08/18/19 Admit Problem/Dx: Admission Diagnosis/Problem Admission Diagnosis/Problem Ankle fracture - History of Present Illness Initial Comments - Free Text/Narative: This is a 39-year-old female with past medical history of MS who presents to the ED for evaluation of a left ankle injury via EMS. As per patient she was walking on a gravel road, and went downhill, ended up slipping, and then fell while going downhill on a gravel road. States she heard a few couple of pops/snapping sounds. She noted immediate pain into the left ankle afterwards Of note she has had prior surgical repair to the same ankle. Left Ankle Pain Score (Numeric/FACES): 8 - Related Data Allergies/Adverse Reactions: Allergies Allergy/AdvReac Type Severity Reaction Status Date / Time erythromycin base Allergy Severe Cannot Verified 08/18/19 20:23 Remember lactose AdvReac Severe Stomach Verified 08/18/19 20:23 Ache Home Medications: Home Meds Cholecalciferol (Vitamin D3) [Vitamin D3] 50,000 mg PO WEEKLY 12/13/17 [History] Cyanocobalamin (Vitamin B12) [Vitamin B12] 1,000 mg INJECT Q30D 12/13/17 [ History] Norethindrone-Ethin. Estradiol [Nortrel 1-35 28 Tablet] 1 tab PO DAILY 08/20/18 [History] Brimonidine Tartrate/Timolol [Combigan 0.2%-0.5% Eye Drops] 1 drop EYEBOTH BID 08/18/19 [History] Cetirizine HCl/Pseudoephedrine [ZyrTEC-D] 1 tab PO DAILY PRN 08/18/19 [History] Cladribine [Mavenclad] 10 mg PO DAILY 08/18/19 [History] Past Medical History HEENT History: Reports: Other (See Below) Other HEENT History: retinal tear. vitreous detachment Cardiovascular History: Reports: None Respiratory History: Reports: Other (See Below) Other Respiratory History: hayfever Gastrointestinal History: Reports: GERD, Irritable Bowel Syndrome Genitourinary History: Reports: None Musculoskeletal History: Reports: Other (See Below) Other Musculoskeletal History: fractured left ankle surgery Neurological History: Reports: MS Endocrine/Metabolic History: Reports: Obesity/BMI 30+ - Infectious Disease History Infectious Disease History: Reports: Chicken Pox - Past Surgical History HEENT Surgical History: Reports: Cataract Surgery, Retinal GI Surgical History: Reports: Cholecystectomy Musculoskeletal Surgical History: Reports: Other (See Below) Other Musculoskeletal Surgeries/Procedures:: fractured left ankle, had pins placed; have been subsequently removed Social & Family History - Family History Family Medical History: Noncontributory - Tobacco Use Smoking Status *Q: Never Smoker Second Hand Smoke Exposure: No - Caffeine Use Caffeine Use: Reports: Soda Other Caffeine Use: 1-2 soda/day - Recreational Drug Use Recreational Drug Use: No H&P Review of Systems - Review of Systems: Review Of Systems: Comprehensive ROS is negative, except as noted in HPI. Exam - Exam Exam: See Below - Vital Signs Vital Signs: Last Vital Signs Temp 97.7 F 08/18/19 19:59 Pulse 87 08/18/19 19:59 Resp 16 08/18/19 19:59 BP 120/84 08/18/19 19:59 Pulse Ox 99 08/18/19 19:59 Weight: 113.852 kg - Exam General: Alert, Oriented, Cooperative. No: Mild Distress HEENT: Conjunctiva Clear, EACs Clear, EOMI, Hearing Intact, Mucosa Moist & [place] , Pupils Equal, Pupils Reactive Neck: Supple, Trachea Midline, +2 Carotid Pulse wo Bruit Lungs: Clear to Auscultation, Normal Respiratory Effort. No: Crackles, Rales, Rhonchi, Rub, Stridor, Wheezing Cardiovascular: Regular Rate, Regular Rhythm. No: Systolic Murmur, Diastolic Murmur, Rubs, Gallop/S3, Gallop/S4 GI/Abdominal Exam: Normal Bowel Sounds, Soft, Non-Tender, Distended. No: Guarding, Rigid, Rebound Back Exam: Normal Inspection Extremities: Normal Capillary Refill, Joint Swelling, Leg Pain, Limited Range of Motion (of left ankle with dorsi/plantar flexion) Peripheral Pulses: 3+: Dorsalis Pedis (L), Dorsalis Pedis (R) Skin: Warm, Dry Neuro Extensive - Mental Status: Alert, Oriented x3 - Patient Data Result Diagrams: 08/19/19 05:46 08/19/19 05:46 Sepsis Event Note - Evaluation Sepsis Screening Result: No Definite Risk - Problem List (1) Traumatic closed displaced fracture of distal tibia SNOMED Code(s): 617425376 ICD Code: S82.309A - UNSP FRACTURE OF LOWER END OF UNSP TIBIA, INIT FOR CLOS FX Status: Acute Current Visit: Yes (2) Left fibular fracture SNOMED Code(s): 62719866, [id number] ICD Code: S82.402A - UNSP FRACTURE OF SHAFT OF LEFT FIBULA, INIT FOR CLOS FX Status: Acute Current Visit: Yes (3) GERD (gastroesophageal reflux disease) SNOMED Code(s): 153998997 ICD Code: K21.9 - GASTRO-ESOPHAGEAL REFLUX DISEASE WITHOUT ESOPHAGITIS Status: Acute Current Visit: No Qualifiers: Esophagitis presence: without esophagitis Qualified Code(s): K21.9 - Gastro -esophageal reflux disease without esophagitis (4) Multiple sclerosis SNOMED Code(s): 75896005 ICD Code: G35 - MULTIPLE SCLEROSIS Status: Acute Current Visit: No (5) Obesity SNOMED Code(s): 614902342, 310904162 ICD Code: E66.9 - OBESITY, UNSPECIFIED Status: Acute Current Visit: Yes Problem List Initiated/Reviewed/Updated: Yes Assessment/Plan Comment:: Traumatic closed displaced fracture of distal tibia and fibula Patient came in after fall with subsequent pop and crack sound after it and inability to ambulate as well as severe pain XR in ED found Distal tibia and fibular fractures near the diaphyseal and metaphyseal junctions with mild displacement and angulation Previous fracture on fibula and talofibular ligament in same ankle about 3 years ago with surgical correction DR. Powers orthopedics has been consulted and is planning surgery for AM PLAN - CBC, BMP, Mg, PO4 and PT/INR in AM - Surgery in AM - Pain control - NPO after midnight GERD (gastroesophageal reflux disease) No acute issues PLAN - Continue home medications Multiple sclerosis Has been undergoing immune reconstitution therapy with Cladribine Last dose in July 2019 Has decreased WBCs in past PLAN - CBC in AM PROPHYLAXIS: DVT- Lovenox GI- not indicated CODE STATUS: FULL CODE DISPOSITION: Patient will be admitted to medical floor overnight for surgical correction of fracture in AM. - Mortality Measure Prognosis:: Good
[2019-08-18] MEDS: Acetaminophen/Codeine 300-30 MG Tab PO PRN (22:31)
[2019-08-19] MEDS: Acetaminophen/Codeine 300-30 MG Tab PO PRN ×2 (06:19→21:28)
--- NOTE | 2019-08-19 08:31 | PCM.PREANE ---
Preanesthetic Assessment - Procedure Proposed Procedure: ORIF Left Tibia and Fibula - Anesthesia/Transfusion/Family Hx Anesthesia History: Prior Anesthesia Without Reaction Family History of Anesthesia Reaction: No Transfusion History: No Prior Transfusion(s) Intubation History: Unknown - Review of Systems General: No Symptoms Pulmonary: No Symptoms Cardiovascular: No Symptoms Gastrointestinal: No Symptoms Neurological: No Symptoms Other: Reports: Easy Bleeding, Easy Bruising - Physical Assessment NPO Status Date: 08/18/19 NPO Status Time: 00:00 Vital Signs: Last Vital Signs Temp 36.9 C 08/19/19 06:06 Pulse 79 08/19/19 06:06 Resp 12 08/19/19 06:06 BP 124/76 08/19/19 06:06 Pulse Ox 99 08/19/19 06:06 Height: 1.78 m Weight: 112.582 kg ASA Class: 2 Mental Status: Alert & Oriented x3 Airway Class: Mallampati = 1 Dentition: Reports: Normal Dentition, [place](s) Thyro-Mental Finger Breadths: 3 Mouth Opening Finger Breadths: 3 ROM/Head Extension: Full Lungs: Clear to Auscultation, Normal Respiratory Effort Cardiovascular: Regular Rate, Regular Rhythm - Lab Values: Laboratory Last Values WBC 8.75 K/mm3 (3.98-10.04) 08/19/19 05:46 RBC 4.13 M/mm3 (3.98-5.22) 08/19/19 05:46 Hgb 12.8 gm/dl (11.2-15.7) 08/19/19 05:46 Hct 39.6 % (34.1-44.9) 08/19/19 05:46 MCV 95.9 fl (79.4-94.8) H 08/19/19 05:46 MCH 31.0 pg (25.6-32.2) 08/19/19 05:46 MCHC 32.3 g/dl (32.2-35.5) 08/19/19 05:46 RDW Std Deviation 46.1 fL (36.4-46.3) 08/19/19 05:46 Plt Count 253 K/mm3 (182-369) 08/19/19 05:46 MPV 10.3 fl (9.4-12.3) 08/19/19 05:46 Neut % (Auto) 80.2 % (34.0-71.1) H 08/19/19 05:46 Lymph % (Auto) 9.8 % (19.3-51.7) L 08/19/19 05:46 [place] % (Auto) 8.6 % (4.7-12.5) 08/19/19 05:46 Eos % (Auto) 0.6 (0.7-5.8) L 08/19/19 05:46 Baso % (Auto) 0.2 % (0.1-1.2) 08/19/19 05:46 Neut # (Auto) 7.02 K/mm3 (1.56-6.13) H 08/19/19 05:46 Lymph # (Auto) 0.86 K/mm3 (1.18-3.74) L 08/19/19 05:46 [place] # (Auto) 0.75 K/mm3 (0.24-0.36) H 08/19/19 05:46 Eos # (Auto) 0.05 K/mm3 (0.04-0.36) 08/19/19 05:46 Baso # (Auto) 0.02 K/mm3 (0.01-0.08) 08/19/19 05:46 Manual Slide Review Normal smear 08/19/19 05:46 PT 10.4 SECONDS (9.7-12.0) 08/19/19 05:46 INR 0.95 08/19/19 05:46 Sodium 138 mEq/L (136-145) 08/19/19 05:46 Potassium 3.9 mEq/L (3.5-5.1) 08/19/19 05:46 Chloride 106 mEq/L (98-107) 08/19/19 05:46 Carbon Dioxide 24 mEq/L (21-32) 08/19/19 05:46 Anion Gap 11.9 (5-15) 08/19/19 05:46 BUN 14 mg/dL (7-18) 08/19/19 05:46 Creatinine 0.7 mg/dL (0.55-1.02) 08/19/19 05:46 Est Cr Clr Drug Dosing 118.99 mL/min 08/19/19 05:46 Estimated GFR (MDRD) > 60 mL/min (>60) 08/19/19 05:46 BUN/Creatinine Ratio 20.0 (14-18) H 08/19/19 05:46 Glucose 120 mg/dL (74-106) H 08/19/19 05:46 Calcium 8.0 mg/dL (8.5-10.1) L 08/19/19 05:46 Phosphorus 3.0 mg/dL (2.6-4.7) 08/19/19 05:46 Magnesium 1.9 mg/dl (1.8-2.4) 08/19/19 05:46 SARS Virus RNA (PCR) Negative (NEGATIVE) 08/18/19 22:35 - Allergies Allergies/Adverse Reactions: Allergies Allergy/AdvReac Type Severity Reaction Status Date / Time erythromycin base Allergy Severe Cannot Verified 08/18/19 20:23 Remember lactose AdvReac Severe Stomach Verified 08/18/19 20:23 Ache - Blood Blood Available: No Product(s) Available: None - Anesthesia Plan Pre-Op Medication Ordered: None - Acknowledgements Anesthesia Type Planned: Spinal Pt an Appropriate Candidate for the Planned Anesthesia: Yes Alternatives and Risks of Anesthesia Discussed w Pt/Guardian: Yes Pt/Guardian Understands and Agrees with Anesthesia Plan: Yes PreAnesthesia Questionnaire HEENT History: Reports: Other (See Below) Other HEENT History: retinal tear. vitreous detachment Cardiovascular History: Reports: None Respiratory History: Reports: Other (See Below) Other Respiratory History: hayfever Gastrointestinal History: Reports: GERD, Irritable Bowel Syndrome Genitourinary History: Reports: None Musculoskeletal History: Reports: Other (See Below) Other Musculoskeletal History: fractured left ankle surgery Neurological History: Reports: MS Endocrine/Metabolic History: Reports: Obesity/BMI 30+ - Infectious Disease History Infectious Disease History: Reports: Chicken Pox - Past Surgical History HEENT Surgical History: Reports: Cataract Surgery, Retinal GI Surgical History: Reports: Cholecystectomy Musculoskeletal Surgical History: Reports: Other (See Below) Other Musculoskeletal Surgeries/Procedures:: fractured left ankle, had pins placed; have been subsequently removed - SUBSTANCE USE Smoking Status *Q: Never Smoker Tobacco Use Within Last Twelve Months: No Second Hand Smoke Exposure: No Days Per Week of Alcohol Use: 1 Number of Drinks Per Day: 1 Total Drinks Per Week: 1 Recreational Drug Use History: No - HOME MEDS Home Medications: Home Meds Cholecalciferol (Vitamin D3) [Vitamin D3] 50,000 mg PO WEEKLY 09/14/18 [History] Cyanocobalamin (Vitamin B12) [Vitamin B12] 1,000 mg INJECT Q30D 12/13/17 [ History] Norethindrone-Ethin. Estradiol [Nortrel 1-35 28 Tablet] 1 tab PO DAILY 08/20/18 [History] Brimonidine Tartrate/Timolol [Combigan 0.2%-0.5% Eye Drops] 1 drop EYEBOTH BID 08/18/19 [History] Cetirizine HCl/Pseudoephedrine [ZyrTEC-D] 1 tab PO DAILY PRN 08/18/19 [History] Cladribine [[place]] 10 mg PO DAILY 08/18/19 [History] - CURRENT (IN HOUSE) MEDS Current Meds: Current Medications Acetaminophen (Tylenol) 650 mg PO Q8H PRN PRN Reason: Pain Acetaminophen/Codeine Phosphate (Tylenol With Codeine No.3 300mg/30mg) 1 tab PO Q8H PRN PRN Reason: pain moderate Last Admin: 08/19/19 06:19 Dose: 1 tab Enoxaparin Sodium (Lovenox) 40 mg SUBCUT DAILY ONE Stop: 08/19/19 21:00 Morphine Sulfate (Morphine) 2 mg IVPUSH Q4H PRN PRN Reason: pain severe Ondansetron HCl (Zofran) 4 mg IVPUSH Q8H PRN PRN Reason: Nausea Discontinued Medications Hydromorphone HCl (Dilaudid) 1 mg IVPUSH ONETIME ONE Stop: 08/18/19 17:11 Last Admin: 08/18/19 17:16 Dose: 1 mg Hydromorphone HCl (Dilaudid) 1 mg IVPUSH ONETIME ONE Stop: 08/18/19 19:01 Last Admin: 08/18/19 19:33 Dose: 1 mg Ondansetron HCl (Zofran) 4 mg IVPUSH ONETIME ONE Stop: 08/18/19 17:11 Last Admin: 08/18/19 17:15 Dose: 4 mg
--- NOTE | 2019-08-19 08:42 | PCM.PN ---
- General Info Date of Service: 08/19/19 Admission Dx/Problem (Free Text): Admission Diagnosis/Problem Admission Diagnosis/Problem Ankle fracture Functional Status: Reports: Pain Controlled, Urinating. Denies: Tolerating Diet (NPO before surgery ), Ambulating, New Symptoms - Review of Systems General: Reports: No Symptoms. Denies: Fever, Weakness, Fatigue, Malaise, Chills HEENT: Reports: No Symptoms. Denies: Headaches, Sore Throat Pulmonary: Reports: No Symptoms. Denies: Shortness of Breath, Cough, Sputum, Wheezing Cardiovascular: Reports: No Symptoms. Denies: Chest Pain, Palpitations, Dyspnea on Exertion, Edema Gastrointestinal: Reports: No Symptoms. Denies: Abdominal Pain, Constipation, Diarrhea, Nausea, Vomiting Genitourinary: Reports: No Symptoms. Denies: Pain Musculoskeletal: Reports: Leg Pain Skin: Reports: No Symptoms. Denies: Cyanosis Neurological: Reports: Difficulty Walking, Gait Disturbance. Denies: Confusion , Weakness Psychiatric: Reports: No Symptoms - Patient Data Vitals - Most Recent: Last Vital Signs Temp 98.4 F 08/19/19 06:06 Pulse 79 08/19/19 06:06 Resp 12 08/19/19 06:06 BP 124/76 08/19/19 06:06 Pulse Ox 99 08/19/19 06:06 Weight - Most Recent: 248 lb 3.2 oz I&O - Last 24 Hours: Intake & Output 08/18/19 08/19/19 08/19/19 22:59 06:59 14:59 Intake Total 100 Output Total 450 Balance -350 Lab Results Last 24 Hours: Laboratory Results - last 24 hr 08/18/19 08/19/19 08/19/19 Range/Units 22:35 05:46 05:46 WBC 8.75 (3.98-10.04) K/mm3 RBC 4.13 (3.98-5.22) M/mm3 Hgb 12.8 (11.2-15.7) gm/dl Hct 39.6 (34.1-44.9) % MCV 95.9 H (79.4-94.8) fl MCH 31.0 (25.6-32.2) pg MCHC 32.3 (32.2-35.5) g/dl RDW Std Deviation 46.1 (36.4-46.3) fL Plt Count 253 (182-369) K/mm3 MPV 10.3 (9.4-12.3) fl Neut % (Auto) 80.2 H (34.0-71.1) % Lymph % (Auto) 9.8 L (19.3-51.7) % [place] % (Auto) 8.6 (4.7-12.5) % Eos % (Auto) 0.6 L (0.7-5.8) Baso % (Auto) 0.2 (0.1-1.2) % Neut # (Auto) 7.02 H (1.56-6.13) K/mm3 Lymph # (Auto) 0.86 L (1.18-3.74) K/mm3 [place] # (Auto) 0.75 H (0.24-0.36) K/mm3 Eos # (Auto) 0.05 (0.04-0.36) K/mm3 Baso # (Auto) 0.02 (0.01-0.08) K/mm3 Manual Slide Review Normal smear PT 10.4 (9.7-12.0) SECONDS INR 0.95 Sodium (136-145) mEq/L Potassium (3.5-5.1) mEq/L Chloride (98-107) mEq/L Carbon Dioxide (21-32) mEq/L Anion Gap (5-15) BUN (7-18) mg/dL Creatinine (0.55-1.02) mg/dL Est Cr Clr Drug Dosing mL/min Estimated GFR (MDRD) (>60) mL/min BUN/Creatinine Ratio (14-18) Glucose (74-106) mg/dL Calcium (8.5-10.1) mg/dL Phosphorus (2.6-4.7) mg/dL Magnesium (1.8-2.4) mg/dl SARS Virus RNA (PCR) Negative (NEGATIVE) 08/19/19 Range/Units 05:46 WBC (3.98-10.04) K/mm3 RBC (3.98-5.22) M/mm3 Hgb (11.2-15.7) gm/dl Hct (34.1-44.9) % MCV (79.4-94.8) fl MCH (25.6-32.2) pg MCHC (32.2-35.5) g/dl RDW Std Deviation (36.4-46.3) fL Plt Count (182-369) K/mm3 MPV (9.4-12.3) fl Neut % (Auto) (34.0-71.1) % Lymph % (Auto) (19.3-51.7) % [place] % (Auto) (4.7-12.5) % Eos % (Auto) (0.7-5.8) Baso % (Auto) (0.1-1.2) % Neut # (Auto) (1.56-6.13) K/mm3 Lymph # (Auto) (1.18-3.74) K/mm3 [place] # (Auto) (0.24-0.36) K/mm3 Eos # (Auto) (0.04-0.36) K/mm3 Baso # (Auto) (0.01-0.08) K/mm3 Manual Slide Review PT (9.7-12.0) SECONDS INR Sodium 138 (136-145) mEq/L Potassium 3.9 (3.5-5.1) mEq/L Chloride 106 (98-107) mEq/L Carbon Dioxide 24 (21-32) mEq/L Anion Gap 11.9 (5-15) BUN 14 (7-18) mg/dL Creatinine 0.7 (0.55-1.02) mg/dL Est Cr Clr Drug Dosing 118.99 mL/min Estimated GFR (MDRD) > 60 (>60) mL/min BUN/Creatinine Ratio 20.0 H (14-18) Glucose 120 H (74-106) mg/dL Calcium 8.0 L (8.5-10.1) mg/dL Phosphorus 3.0 (2.6-4.7) mg/dL Magnesium 1.9 (1.8-2.4) mg/dl SARS Virus RNA (PCR) (NEGATIVE) Med Orders - Current: Current Medications Acetaminophen (Tylenol) 650 mg PO Q8H PRN PRN Reason: Pain Acetaminophen/Codeine Phosphate (Tylenol With Codeine No.3 300mg/30mg) 1 tab PO Q8H PRN PRN Reason: pain moderate Last Admin: 08/19/19 06:19 Dose: 1 tab Enoxaparin Sodium (Lovenox) 40 mg SUBCUT DAILY ONE Stop: 08/19/19 21:00 Morphine Sulfate (Morphine) 2 mg IVPUSH Q4H PRN PRN Reason: pain severe Ondansetron HCl (Zofran) 4 mg IVPUSH Q8H PRN PRN Reason: Nausea Discontinued Medications Hydromorphone HCl (Dilaudid) 1 mg IVPUSH ONETIME ONE Stop: 08/18/19 17:11 Last Admin: 08/18/19 17:16 Dose: 1 mg Hydromorphone HCl (Dilaudid) 1 mg IVPUSH ONETIME ONE Stop: 08/18/19 19:01 Last Admin: 08/18/19 19:33 Dose: 1 mg Ondansetron HCl (Zofran) 4 mg IVPUSH ONETIME ONE Stop: 08/18/19 17:11 Last Admin: 08/18/19 17:15 Dose: 4 mg - Exam Quality Assessment: DVT Prophylaxis General: Alert, Oriented, Cooperative, No Acute Distress HEENT: Pupils Equal, Pupils Reactive, Mucous Membr. Moist/[place] Neck: Supple, Trachea Midline Lungs: Clear to Auscultation, Normal Respiratory Effort Cardiovascular: Regular Rate, Regular Rhythm GI/Abdominal Exam: Normal Bowel Sounds, Soft, Non-Tender, No Distention (Female) Exam: Deferred Extremities: No Pedal Edema, Normal Capillary Refill, Leg Pain (right ankle pain ), Other (Cast in place on right ankle up to knee ) Skin: Warm, Dry, Intact Neurological: No New Focal Deficit Psy/Mental Status: Alert, Normal Affect, Normal Mood Sepsis Event Note - Evaluation Sepsis Screening Result: No Definite Risk - Focused Exam Vital Signs: Vital Signs Temp Pulse Resp BP Pulse Ox 08/19/19 06:06 98.4 F 79 12 124/76 99 08/18/19 22:58 97.9 F 72 12 116/84 99 Date Exam was Performed: 08/19/19 Time Exam was Performed: 12:20 - Problem List & Annotations (1) Fracture of tibia AND fibula SNOMED Code(s): 228869079 Code(s): S82.209A - UNSP FRACTURE OF SHAFT OF UNSP TIBIA, INIT FOR CLOS FX; S82.409A - UNSP FRACTURE OF SHAFT OF UNSP FIBULA, INIT FOR CLOS FX Status: Acute Priority: High Current Visit: Yes (2) Left fibular fracture SNOMED Code(s): 73106019, 94022111060449320 Code(s): S82.402A - UNSP FRACTURE OF SHAFT OF LEFT FIBULA, INIT FOR CLOS FX Status: Acute Priority: High Current Visit: Yes Qualifiers: Encounter type: initial encounter Fibula location: distal Fracture type: closed Fracture morphology: unspecified fracture morphology Qualified Code(s ): S82.832A - Other fracture of upper and lower end of left fibula, initial encounter for closed fracture (3) Obesity SNOMED Code(s): 191764259, 695061409 Code(s): E66.9 - OBESITY, UNSPECIFIED Status: Chronic Priority: Low Current Visit: No Qualifiers: Obesity type: unspecified obesity type Obesity classification: adult class 2 (BMI 35 - 39.9) Serious obesity comorbidity presence: unspecified whether serious comorbidity present Body mass index: BMI 35.0-35.9 Qualified Code(s) : E66.9 - Obesity, unspecified; Z68.35 - Body mass index (BMI) 35.0-35.9, adult (4) Traumatic closed displaced fracture of distal tibia SNOMED Code(s): 913336969 Code(s): S82.309A - UNSP FRACTURE OF LOWER END OF UNSP TIBIA, INIT FOR CLOS FX Status: Acute Priority: High Current Visit: Yes (5) GERD (gastroesophageal reflux disease) SNOMED Code(s): 739507266 Code(s): K21.9 - GASTRO-ESOPHAGEAL REFLUX DISEASE WITHOUT ESOPHAGITIS Status: Chronic Priority: Low Current Visit: No Qualifiers: Esophagitis presence: without esophagitis Qualified Code(s): K21.9 - Gastro -esophageal reflux disease without esophagitis (6) Multiple sclerosis SNOMED Code(s): 40057880 Code(s): G35 - MULTIPLE SCLEROSIS Status: Chronic Priority: Low Current Visit: No - Problem List Review Problem List Initiated/Reviewed/Updated: Yes - Plan Plan:: Traumatic closed displaced fracture of distal tibia and fibula Patient came in after fall with subsequent pop and crack sound after it and inability to ambulate as well as severe pain XR in ED found Distal tibia and fibular fractures near the diaphyseal and metaphyseal junctions with mild displacement and angulation Previous fracture on fibula and talofibular ligament in same ankle about 3 years ago with surgical correction DR. Powers orthopedics has been consulted and is planning surgery for today COVID-19 negative - test obtained preoperatively as surgical requirement. No current symptoms present. PLAN - Surgery today with Dr. Powers - Pain control - NPO after midnight - regular diet after - PT evaluation after surgery GERD (gastroesophageal reflux disease) No acute issues PLAN - Continue home medications Multiple sclerosis Has been undergoing immune reconstitution therapy with Cladribine Last dose in July 2019 Has decreased WBCs in past PLAN - CBC stable PROPHYLAXIS: DVT- Lovenox GI- not indicated CODE STATUS: FULL CODE DISPOSITION: Patient will be admitted to medical floor observation status for surgical correction of fracture in AM. Possible discharge in next 12-24 hours
[2019-08-19] MEDS ORDERED: Ondansetron 4 MG/2 ML SDV ONE (10:01)
[2019-08-19] MEDS ORDERED: fentaNYL 100 MCG/2 ML SDV ONE (10:01)
[2019-08-19] MEDS ORDERED: Lidocaine 1% 4 ML ONE (10:01)
[2019-08-19] MEDS ORDERED: Propofol 200 MG/20 ML SDV ONE (10:01)
[2019-08-19] MEDS ORDERED: Midazolam 1 MG/ML 2 ML SDV ONE (10:01)
[2019-08-19] MEDS ORDERED: ceFAZolin 1 GM Vial ONE (10:04)
[2019-08-19] MEDS ORDERED: Bupivacaine 0.25% 10 ML SDV ONE (10:05)
[2019-08-19] MEDS ORDERED: Rocuronium 50 MG/5 ML Vial ONE (10:34)
[2019-08-19] MEDS ORDERED: fentaNYL 250 MCG/5 ML SDV ONE (10:43)
[2019-08-19] MEDS ORDERED: HYDROmorphone 0.5 MG/0.5 ML Syringe ONE (10:45)
[2019-08-19] MEDS ORDERED: Ketamine 500 mg/10 ML MDV ONE (10:45)
[2019-08-19] MEDS ORDERED: Dexamethasone 4 MG/ML 5 ML MDV ONE (10:59)
[2019-08-19] MEDS ORDERED: Ondansetron 4 MG/2 ML SDV IVPUSH PRN (11:08)
[2019-08-19] MEDS ORDERED: fentaNYL 100 MCG/2 ML SDV IVPUSH PRN (11:08)
[2019-08-19] MEDS ORDERED: HYDROmorphone 0.5 MG/0.5 ML Syringe IVPUSH PRN (11:08)
[2019-08-19] MEDS ORDERED: Lactated Ringers 1,000 ML ONE ×2 (11:29→11:30)
[2019-08-19] MEDS ORDERED: Ketorolac 30 MG/ML SDV ONE (11:49)
--- NOTE | 2019-08-19 12:12 | CR ---
Left ankle: 8 fluoroscopic spot views were obtained of the left ankle utilizing C-arm device. Study shows reduction of previous fractures within the distal tibia and fibula. Study also shows placement of plate and screws within the tibia. Fluoroscopy time is given as 71.8 seconds. Impression: 1. Procedural study as described above. Diagnostic code #2 This report was dictated in MDT
--- NOTE | 2019-08-19 12:22 | PCM.POSTAN ---
POST ANESTHESIA ASSESSMENT - MENTAL STATUS Mental Status: Alert, Oriented - VITAL SIGNS Vital Signs: Last Vital Signs Temp 98.4 F 08/19/19 06:06 Pulse 79 08/19/19 06:06 Resp 12 08/19/19 06:06 BP 124/76 08/19/19 06:06 Pulse Ox 99 08/19/19 06:06 125/81 96 13 97% 97.4 - RESPIRATORY Respiratory Status: Respiratory Rate WNL, Airway Patent, O2 Saturation Stable, Supplemental Oxygen - CARDIOVASCULAR CV Status: Pulse Rate WNL, Blood Pressure Stable - GASTROINTESTINAL GI Status: No Symptoms - PAIN Pain Score: 0 - POST OP HYDRATION Hydration Status: Adequate & Stable
--- NOTE | 2019-08-19 14:50 | PCM48HPAN ---
Post Anesthesia Note - EVALUATION WITHIN 48HRS OF ANESTHETIC Vital Signs in Normal Range: Yes Patient Participated in Evaluation: Yes Respiratory Function Stable: Yes Airway Patent: Yes Cardiovascular Function Stable: Yes Hydration Status Stable: Yes Pain Control Satisfactory: Yes Nausea and Vomiting Control Satisfactory: Yes Mental Status Recovered: Yes Vital Signs: Last Vital Signs Temp 36.2 C 08/19/19 13:15 Pulse 69 08/19/19 14:32 Resp 16 08/19/19 13:15 BP 119/72 08/19/19 14:32 Pulse Ox 97 08/19/19 14:32 - COMMENTS/OBSERVATIONS Free Text/Narrative:: no anesthesia complications noted
[2019-08-19] MEDS ORDERED: Scopolamine 1.5 MG Transdermal Patch TOP ONE (15:30)
[2019-08-19] MEDS ORDERED: Enoxaparin 40 MG/0.4 ML Syringe SUBCUT SCH (21:00)
--- NOTE | 2019-08-20 07:51 | PCM.DCSUM1 ---
Discharge Summary - Hospital Course HPI Initial Comments: This is a 39-year-old female with past medical history of MS who presents to the ED for evaluation of a left ankle injury via EMS. As per patient she was walking on a gravel road, and went downhill, ended up slipping, and then fell while going downhill on a gravel road. States she heard a few couple of pops/snapping sounds. She noted immediate pain into the left ankle afterwards Of note she has had prior surgical repair to the same ankle. Diagnosis: Stroke: No - Discharge Data Discharge Date: 08/20/19 (Admit date: 08/18/19) Discharge Disposition: Home, Self-Care 01 Condition: Good - Referral to Home Health Primary Care Physician: SAMUEL Melton - Discharge Diagnosis/Problem(s) (1) Fracture of tibia AND fibula SNOMED Code(s): 153865881 ICD Code: S82.209A - UNSP FRACTURE OF SHAFT OF UNSP TIBIA, INIT FOR CLOS FX; S82.409A - UNSP FRACTURE OF SHAFT OF UNSP FIBULA, INIT FOR CLOS FX Status: Acute Priority: High Current Visit: Yes (2) Left fibular fracture SNOMED Code(s): 75856214, [id number] ICD Code: S82.402A - UNSP FRACTURE OF SHAFT OF LEFT FIBULA, INIT FOR CLOS FX Status: Acute Priority: High Current Visit: Yes Qualifiers: Encounter type: initial encounter Fibula location: distal Fracture type: closed Fracture morphology: unspecified fracture morphology Qualified Code(s ): S82.832A - Other fracture of upper and lower end of left fibula, initial encounter for closed fracture (3) Obesity SNOMED Code(s): 173217896, 536884554 ICD Code: E66.9 - OBESITY, UNSPECIFIED Status: Chronic Priority: Low Current Visit: No Qualifiers: Obesity type: unspecified obesity type Obesity classification: adult class 2 (BMI 35 - 39.9) Serious obesity comorbidity presence: unspecified whether serious comorbidity present Body mass index: BMI 35.0-35.9 Qualified Code(s) : E66.9 - Obesity, unspecified; Z68.35 - Body mass index (BMI) 35.0-35.9, adult (4) Traumatic closed displaced fracture of distal tibia SNOMED Code(s): 404772139 ICD Code: S82.309A - UNSP FRACTURE OF LOWER END OF UNSP TIBIA, INIT FOR CLOS FX Status: Acute Priority: High Current Visit: Yes (5) GERD (gastroesophageal reflux disease) SNOMED Code(s): 268719163 ICD Code: K21.9 - GASTRO-ESOPHAGEAL REFLUX DISEASE WITHOUT ESOPHAGITIS Status: Chronic Priority: Low Current Visit: No Qualifiers: Esophagitis presence: without esophagitis Qualified Code(s): K21.9 - Gastro -esophageal reflux disease without esophagitis (6) Multiple sclerosis SNOMED Code(s): 03053081 ICD Code: G35 - MULTIPLE SCLEROSIS Status: Chronic Priority: Low Current Visit: No - Patient Summary/Data Consults: Consultations 08/19/19 10:22 Consult to Physical Therapy [PT Evaluation and Treatment] [CONS] Routine 08/19/19 13:59 Consult to Physician [CONS] Routine Labs Pending at D/C: None Recommended Follow-up Testing/Procedures: Follow-up with Dr. Powers's office as scheduled. Hospital Course: Vickie Palma was admitted to the hospital floor after a left ankle injury resulting in a distal tibia and fibula fracture. ORIF of left distal tibia was performed by Dr. Powers on 08/19/2019. Patient tolerated the procedure well however after returning to the floor she continued to have significant nausea. Zofran was given. She was held overnight and nausea has since resolved. She had no concerns. She did work with physical therapy who taught her how to utilize crutches and there were no concerns on their end. She was started on 325 mg twice daily aspirin for anticoagulation. She reports pain has been very minimal. We discussed pain control and she was advised to take Tylenol over-the -counter as needed for pain. She was given a prescription for Tylenol 3 as needed for more severe pain. We discussed bowel regimen and ensuring that she has a bowel movement in the next few days. We discussed how she is nonweightbearing status. Also discussed concerns for infection she has severe pain, redness around surgical site, fevers, nausea and vomiting. Appointment was made for follow-up with orthopedics after discharge. She was instructed to contact them, her primary care provider, or return to the ER should symptoms return or worsen. She was directed to wean down pain medications and ensure she is up and moving around. She was discharged home today. Home medications were otherwise continued. - Patient Instructions Diet: Usual Diet as Tolerated Activity: Apply Ice, As Tolerated, Non Weight Bearing Driving: Do Not Drive Showering/Bathing: May Shower Showering/Bathing, Other: Keep splint covered with showering. Wound/Incision Care: Keep Operative Site/Wound Site Clean and Dry, Do NOT Change Dressing Notify Provider of: Fever, Increased Pain, Swelling and Redness, Drainage, Nausea and/or Vomiting Other/Special Instructions: Please get up and moving around every hour while awake. This helps to prevent blood clots. Please use a walker, crutches, or a scooter and have help with mobility as needed. Please do not place weight through the surgical limb. On , 08-20-2019, please starting taking a 325mg aspirin twice daily. The aspirin helps prevent blood clots so please do not miss a dose of aspirin. If you are unable to use aspirin, please notify the Clinic. Elevate the limb to decrease swelling. Place ice to the area often. Use the pain medication as needed. The medication may cause drowsiness and constipation. Discontinue use of the pain medication as soon as able. Call the Clinic at [phone] and leave a message with the nurse if you have questions or concerns. Follow-up with Dr. Powers's office as scheduled. - Discharge Plan *PRESCRIPTION DRUG MONITORING PROGRAM REVIEWED*: No *COPY OF PRESCRIPTION DRUG MONITORING REPORT IN PATIENT CULLEN: No Prescriptions/Med Rec: Acetaminophen/Codeine [Tylenol with Codeine No.3 300MG/30MG] 1 tab PO Q8H PRN # 12 tablet PRN Reason: pain moderate Aspirin [Ecotrin EC] 325 mg PO BID #60 tab.ec Home Medications: Home Meds Cholecalciferol (Vitamin D3) [Vitamin D3] 50,000 mg PO WEEKLY 12/13/17 [History] Cyanocobalamin (Vitamin B12) [Vitamin B12] 1,000 mg INJECT Q30D 12/13/17 [ History] Norethindrone-Ethin. Estradiol [Nortrel 1-35 28 Tablet] 1 tab PO DAILY 08/20/18 [History] Brimonidine Tartrate/Timolol [Combigan 0.2%-0.5% Eye Drops] 1 drop EYEBOTH BID 08/18/19 [History] Cetirizine HCl/Pseudoephedrine [ZyrTEC-D] 1 tab PO DAILY PRN 08/18/19 [History] Cladribine [Mavenclad] 10 mg PO DAILY 08/18/19 [History] Acetaminophen [Tylenol] 650 mg PO Q8H PRN tablet 08/20/19 [Rx] Acetaminophen/Codeine [Tylenol with Codeine No.3 300MG/30MG] 1 tab PO Q8H PRN # 12 tablet 08/20/19 [Rx] Aspirin [Ecotrin EC] 325 mg PO BID #60 tab.ec 08/20/19 [Rx] Oxygen Therapy Mode: Room Air Referrals: Sven Powers MD [Physician] - 09/01/19 10:15 am - Discharge Summary/Plan Comment DC Time >30 min.: Yes (45 mins ) - General Info Date of Service: 08/20/19 Admission Dx/Problem (Free Text: Admission Diagnosis/Problem Admission Diagnosis/Problem Ankle fracture Functional Status: Reports: Pain Controlled, Tolerating Diet, Ambulating, Urinating. Denies: New Symptoms - Review of Systems General: Reports: No Symptoms. Denies: Fever, Weakness, Fatigue, Malaise, Chills HEENT: Reports: No Symptoms. Denies: Headaches Pulmonary: Reports: No Symptoms. Denies: Shortness of Breath, Cough, Sputum, Wheezing Cardiovascular: Reports: No Symptoms. Denies: Chest Pain, Palpitations, Dyspnea on Exertion Gastrointestinal: Reports: No Symptoms. Denies: Abdominal Pain, Constipation, Diarrhea, Nausea, Vomiting Genitourinary: Reports: No Symptoms. Denies: Pain Musculoskeletal: Reports: Leg Pain (very mild ) Skin: Reports: No Symptoms. Denies: Cyanosis Neurological: Reports: Difficulty Walking, Gait Disturbance. Denies: Confusion , Numbness, Tingling, Weakness Psychiatric: Reports: No Symptoms - Patient Data Vitals - Most Recent: Last Vital Signs Temp 98.2 F 08/20/19 04:14 Pulse 72 08/20/19 04:14 Resp 16 08/20/19 04:14 BP 112/73 08/20/19 04:14 Pulse Ox 97 08/20/19 04:14 Weight - Most Recent: 246 lb 12.8 oz I&O - Last 24 hours: Intake & Output 08/19/19 08/20/1908/19/20 22:59 06:59 14:59 Intake Total 290 120 Output Total 200 830 Balance 90 -710 Med Orders - Current: Current Medications Acetaminophen (Tylenol) 650 mg PO Q8H PRN PRN Reason: Pain Acetaminophen/Codeine Phosphate (Tylenol With Codeine No.3 300mg/30mg) 1 tab PO Q8H PRN PRN Reason: pain moderate Last Admin: 08/19/19 21:28 Dose: 1 tab Aspirin (Ecotrin) 325 mg PO BID LISA Enoxaparin Sodium (Lovenox) 40 mg SUBCUT BEDTIME LISA Last Admin: 08/19/19 20:47 Dose: 40 mg Miscellaneous Information (Remove Patch) 1 ea TRDERM ONETIME ONE Stop: 08/22/19 15:31 Morphine Sulfate (Morphine) 2 mg IVPUSH Q4H PRN PRN Reason: pain severe Non-Formulary Medication (Brimonidine Tartrate/Timolol [Combigan 0.2%-0.5% Eye Drops]) 1 drop EYEBOTH BID [facility] Ondansetron HCl (Zofran) 4 mg IVPUSH Q8H PRN PRN Reason: Nausea Last Admin: 08/19/19 15:26 Dose: 4 mg Discontinued Medications Bupivacaine HCl (Sensorcaine-Mpf 0.25%) Confirm Administered Dose 20 ml .ROUTE .STK-MED ONE Stop: 08/19/19 10:06 Last Admin: 08/19/19 11:50 Dose: 20 ml Cefazolin Sodium (Ancef) Confirm Administered Dose 2 gm .ROUTE .STK-MED ONE Stop: 08/19/19 10:05 Dexamethasone (Dexamethasone) Confirm Administered Dose 20 mg .ROUTE .STK-MED ONE Stop: 08/19/19 11:00 Fentanyl (Sublimaze) Confirm Administered Dose 100 mcg .ROUTE .STK-MED ONE Stop: 08/19/19 10:02 Fentanyl (Sublimaze) Confirm Administered Dose 250 mcg .ROUTE .STK-MED ONE Stop: 08/19/19 10:44 Fentanyl (Sublimaze) 50 mcg IVPUSH Q5M PRN PRN Reason: Pain Stop: 08/19/19 14:00 Hydromorphone HCl (Dilaudid) 1 mg IVPUSH ONETIME ONE Stop: 08/18/19 17:11 Last Admin: 08/18/19 17:16 Dose: 1 mg Hydromorphone HCl (Dilaudid) 1 mg IVPUSH ONETIME ONE Stop: 08/18/19 19:01 Last Admin: 08/18/19 19:33 Dose: 1 mg Hydromorphone HCl (Dilaudid) Confirm Administered Dose 1 mg .ROUTE .STK-MED ONE Stop: 08/19/19 10:46 Hydromorphone HCl (Dilaudid) 0.5 mg IVPUSH Q10M PRN PRN Reason: Pain (severe 7-10) Stop: 08/19/19 14:00 Lidocaine HCl (Xylocaine-Mpf 1%) Confirm Administered Dose 4 mls @ as directed .ROUTE .STK-MED ONE Stop: 08/19/19 10:02 Lactated Ringer's (Ringers, Lactated) Confirm Administered Dose 1,000 mls @ as directed .ROUTE .STK-MED ONE Stop: 08/19/19 11:30 Lactated Ringer's (Ringers, Lactated) Confirm Administered Dose 1,000 mls @ as directed .ROUTE .STK-MED ONE Stop: 08/19/19 11:31 Ketamine HCl (Ketalar) Confirm Administered Dose 500 mg .ROUTE .STK-MED ONE Stop: 08/19/19 10:46 Ketorolac Tromethamine (Toradol) Confirm Administered Dose 30 mg .ROUTE .STK- MED ONE Stop: 08/19/19 11:50 Midazolam HCl (Versed 1 Mg/Ml) Confirm Administered Dose 2 mg .ROUTE .STK-MED ONE Stop: 08/19/19 10:02 Non-Formulary Medication (Cholecalciferol (Vitamin D3) [Vitamin D3]) 50,000 mg PO Q7D [facility] Ondansetron HCl (Zofran) 4 mg IVPUSH ONETIME ONE Stop: 08/18/19 17:11 Last Admin: 08/18/19 17:15 Dose: 4 mg Ondansetron HCl (Zofran) Confirm Administered Dose 4 mg .ROUTE .STK-MED ONE Stop: 08/19/19 10:02 Ondansetron HCl (Zofran) 4 mg IVPUSH ONETIME PRN PRN Reason: Nausea/Vomiting Stop: 08/19/19 14:00 Last Admin: 08/19/19 12:45 Dose: 4 mg Propofol (Diprivan 20 Ml) Confirm Administered Dose 200 mg .ROUTE .STK-MED ONE Stop: 08/19/19 10:02 Rocuronium Dike (Zemuron) Confirm Administered Dose 50 mg .ROUTE .STK-MED ONE Stop: 08/19/19 10:35 Scopolamine (Transderm-Scop) 1.5 mg TOP ONETIME ONE Stop: 08/19/19 15:31 Last Admin: 08/19/19 15:33 Dose: 1.5 mg - Exam Quality Assessment: Reports: DVT Prophylaxis. Denies: Supplemental Oxygen General: Reports: Alert, Oriented, Cooperative, No Acute Distress HEENT: Reports: Pupils Equal, Pupils Reactive, Mucous Membr. Moist/[place] Neck: Reports: Supple, Trachea Midline Lungs: Reports: Clear to Auscultation, Normal Respiratory Effort Cardiovascular: Reports: Regular Rate, Tachycardia GI/Abdominal Exam: Normal Bowel Sounds, Soft, Non-Tender, No Distention (Female) Exam: Deferred Rectal (Female) Exam: Deferred Back Exam: Reports: Normal Inspection, Full Range of Motion Extremities: No Pedal Edema, Normal Capillary Refill, Leg Pain (Mild to none ), Limited Range of Motion (2/2 splint), Other (Splint in place on left lower leg. Cooling pack in place. ) Skin: Reports: Warm, Dry, Intact Neurological: Reports: No New Focal Deficit Psy/Mental Status: Reports: Alert, Normal Affect, Normal Mood
[2019-08-20 08:19] VITALS: BP 119/65; PULSE 73
[2019-08-20] MEDS ORDERED: Aspirin 325 MG Tab.EC PO SCH (09:00)
[2019-08-20] MEDS: Acetaminophen/Codeine 300-30 MG Tab PO PRN (09:18)
[2019-08-22] MEDS ORDERED: [UNRECOGNIZED DRUG - REMARK] TRDERM ONE (15:30)
--- NOTE | 2019-08-25 08:59 | PCM.OPNOTE ---
- General Post-Op/Procedure Note Date of Surgery/Procedure: 08/19/19 Operative Procedure(s): open reduction internal fixation of left distal tibia fracture Pre Op Diagnosis: left distal tibia and fibula fracture Post-Op Diagnosis: Same Anesthesia Technique: General LMA, Local Primary Surgeon: Sven Powers Anesthesia Provider: Norma Barrientos Adhesive Bandage Making Operator: Yvette Guthrie EBL in mLs: 40 Complications: None Condition: Good
[2019-08-25] MEDS ORDERED: CHOLECALCIFEROL PO SCH (09:00)
--- NOTE | 2019-08-25 11:30 | OR ---
DATE OF OPERATION: 08/19/2019 SURGEON: Sven Powers MD OPERATION PERFORMED: Open reduction and internal fixation of left distal tibial fracture. PREOPERATIVE DIAGNOSIS: Left distal tibia and fibula fracture. POSTOPERATIVE DIAGNOSIS: Left distal tibia and fibula fracture. ANESTHESIA: General LMA with local. ANESTHESIA PROVIDER: Norma Barrientos CRNA SHORT PIECE HANDLER: Yvette Guthrie PA-C ESTIMATED BLOOD LOSS: 40 mL. COMPLICATIONS: None. CONDITION: Stable. DESCRIPTION OF PROCEDURE: The patient was identified in the preop holding area. Proper site was marked and identified by the surgeon. The patient was taken back to the operating theater where after adequate anesthesia, the patient had a nonsterile tourniquet applied to the left lower extremity. Left lower extremity was then sterilely prepped and draped in the usual sterile fashion. OR time-out was performed. The patient received 2 g IV Ancef. The left lower extremity was elevated and tourniquet was insufflated to 250 mmHg. The previous medial incision was utilized. This was taken down and cephalic vein and nerve were identified and retracted anteriorly. The fracture site was identified. Hematoma was then irrigated and curetted out of the fracture site and a closed reduction maneuver was performed. It was found to have a near complete anatomic reduction on both AP and lateral views utilizing C-arm fluoroscopy which was utilized during the entirety of the procedure. At this time, a distal tibial [place] locking plate was placed under C-arm fluoroscopy on both AP and lateral views and was found to be in adequate position. At this time, a nonlocking cancellous screw was placed in lag fashion across the fracture site distally, then a cortical screw was placed proximally into the shaft that was nonlocking. Next, 4 locking screws were placed distally in the fracture site and had adequate fixation and then 3 more screws were placed proximally in the tibial shaft, 2 locking and 1 nonlocking. It was found to have adequate anatomic reduction on both AP and lateral views. The ankle mortise was otherwise symmetric and stable. Fibular fixation was not need at this time as the fibula was out to length. At this time, adequate saline was irrigated through the wound. 2-0 Vicryl was used subcutaneously, jama were used for closure of the skin. 0.25% Marcaine was injected around the incisional site. The patient had a sterile soft dressing and a posterior slab splint applied and was sent to PACU in stable condition. MMATIYA /[id number]
== END 2019-08-20 11:15 | disposition home or self-care (01) ==
LOC: JD.ED 16:17 → JD.MS 19:06
PROVIDERS: ADMIT Internal Medicine; ATTEND Internal Medicine
DX: S82.832A Other fracture of upper and lower end of left fibula, initial encounter for closed fracture (principal); S89.102A Unspecified physeal fracture of lower end of left tibia, initial encounter for closed fracture; K21.9 Gastro-esophageal reflux disease without esophagitis; E66.9 Obesity, unspecified; G35 Multiple sclerosis; Z20.828 Contact with and (suspected) exposure to other viral communicable diseases; Z88.1 Allergy status to other antibiotic agents; Z68.35 Body mass index [BMI] 35.0-35.9, adult; Z91.011 Allergy to milk products; Y93.01 Activity, walking, marching and hiking; W01.0XXA Fall on same level from slipping, tripping and stumbling without subsequent striking against object, initial encounter
CPT/HCPCS: 27758; 36415; 73610; 76000; 80048; 83735; 84100; 85025; 85610; 87635; 96372; 96374; 96375; 96376; 97116; 97161; 99285; A9270; C1713; C1776; G0378; J0690; J1100; J1170; J1650; J1885; J2001; J2250; J2405; J2704; J3010; J3490; J7120; 01392; 29515; 99217; 99219; 99225; 99283; U0002

== ENCOUNTER 2019-09-05 11:38 | Emergency (ER) | payer OTHER ==
[2019-09-05 11:44] VITALS: BP 131/87; PULSE 66
--- NOTE | 2019-09-05 11:55 | EDM.PDOC ---
ED HPI GENERAL MEDICAL PROBLEM - General Chief Complaint: Head Injury Stated Complaint: HEAD INJURY Time Seen by Provider: 09/05/19 11:40 Source of Information: Reports: Patient History Limitations: Reports: No Limitations - History of Present Illness INITIAL COMMENTS - FREE TEXT/NARRATIVE: The patient presents with a headache. This happened a couple days ago. She fractured her right ankle last month and had surgery. She is a walking boot and not weight bearing. She was getting into a care a couple days ago and hit the back of her head. She had a headache ever since. The pain is to both sides of her head. She has no blurred vision, double vision, numbness, weakness , fever, chills, cough, chest pain or shortness of breath. She is on aspirin. Onset: Sudden Duration: Day(s): (2) Location: Reports: Head Quality: Reports: Sharp Severity: Moderate Improves with: Reports: None Worsens with: Reports: None Associated Symptoms: Reports: Headaches. Denies: Chest Pain, Cough, Fever/ Chills, Nausea/Vomiting, Shortness of Breath Headache Pain Score (Numeric/FACES): 4 - Related Data Allergies Allergy/AdvReac Type Severity Reaction Status Date / Time erythromycin base Allergy Mild Cannot Verified 09/05/19 11:44 Remember lactose AdvReac Mild Stomach Verified 09/05/19 11:44 Ache Home Meds: Home Meds Norethindrone-Ethin. Estradiol [Nortrel 1-35 28 Tablet] 1 tab PO DAILY 08/20/18 [History] Aspirin [Ecotrin EC] 325 mg PO BID #60 tab.ec 08/20/19 [Rx] Past Medical History HEENT History: Reports: Other (See Below) Other HEENT History: retinal tear. vitreous detachment Cardiovascular History: Reports: None Respiratory History: Reports: Other (See Below) Other Respiratory History: hayfever Gastrointestinal History: Reports: GERD, Irritable Bowel Syndrome Genitourinary History: Reports: None Musculoskeletal History: Reports: Other (See Below) Other Musculoskeletal History: fractured left ankle surgery Neurological History: Reports: MS Endocrine/Metabolic History: Reports: Obesity/BMI 30+ - Infectious Disease History Infectious Disease History: Reports: Chicken Pox - Past Surgical History HEENT Surgical History: Reports: Cataract Surgery, Retinal GI Surgical History: Reports: Cholecystectomy Musculoskeletal Surgical History: Reports: Other (See Below) Other Musculoskeletal Surgeries/Procedures:: fractured left ankle, had pins placed; have been subsequently removed Social & Family History - Family History Family Medical History: Noncontributory - Tobacco Use Smoking Status *Q: Never Smoker - Caffeine Use Caffeine Use: Reports: Soda Other Caffeine Use: 1-2 soda/day - Recreational Drug Use Recreational Drug Use: No ED ROS GENERAL - Review of Systems Review Of Systems: See Below Constitutional: Reports: No Symptoms HEENT: Reports: No Symptoms Respiratory: Reports: No Symptoms Cardiovascular: Reports: No Symptoms Endocrine: Reports: No Symptoms GI/Abdominal: Reports: No Symptoms : Reports: No Symptoms Musculoskeletal: Reports: No Symptoms Neurological: Reports: Headache. Denies: Numbness, Weakness ED EXAM, HEAD INJURY - Physical Exam Exam: See Below Exam Limited By: No Limitations General Appearance: Alert, No Apparent Distress Head: Atraumatic, Normocephalic Eyes: Bilateral Eye: EOMI Ears: Normal External Exam Nose: Normal Inspection Neck: Non-Tender, Normal Alignment, Normal Inspection Respiratory: No Respiratory Distress, Lungs Clear, Normal Breath Sounds Cardiovascular: Regular Rate, Rhythm, No Edema, No Murmur GI/Abdominal Exam: Soft, Non-Tender, No Organomegaly, No Mass Extremities: Other (Right lower leg in a walking boot) Course - Vital Signs Last Recorded V/S: Last Vital Signs Temp 98.7 F 09/05/19 11:42 Pulse 66 09/05/19 11:42 Resp 16 09/05/19 11:42 BP 131/87 09/05/19 11:42 Pulse Ox 97 09/05/19 11:42 - Orders/Labs/Meds Orders: Active Orders 24 hr Category Date Time Status Head wo Cont [CT] Stat Exams 09/05/19 11:49 Taken - Re-Assessments/Exams Free Text/Narrative Re-Assessment/Exam: 09/05/19 11:[address] of her head. 09/05/19 12:[address] shows no acute intracranial hemorrhage. Mild periventricular white matter disease especially around the left frontal horn. Differential diagnosis includes chronic small vessel ischemic disease, viral illness, Lyme disease, migraine headaches, vasculitis and demyelnating disease such as multiple sclerosis. Recommend MRI for further evaluation. The patient does have MS and there was no CT to compare. Departure - Departure Time of Disposition: 13:05 Disposition: Home, Self-Care 01 Condition: Good Clinical Impression: Concussion injury of brain Head injury Qualifiers: Encounter type: initial encounter Qualified Code(s): S09.90XA - Unspecified injury of head, initial encounter - Discharge Information *PRESCRIPTION DRUG MONITORING PROGRAM REVIEWED*: Not Applicable *COPY OF PRESCRIPTION DRUG MONITORING REPORT IN PATIENT CULLEN: Not Applicable Referrals: Christina Calzada PA-C [Primary Care Provider] - 1 Week Forms: ED Department Discharge Additional Instructions: Take tylenol or motrin as needed for pain. Get some rest. Please return if you are worse. Sepsis Event Note - Evaluation Sepsis Screening Result: No Definite Risk - Focused Exam Vital Signs: Vital Signs Temp Pulse Resp BP Pulse Ox 09/05/19 11:42 98.7 F 66 16 131/87 97 Date Exam was Performed: 09/05/19 Time Exam was Performed: 12:58 - My Orders Last 24 Hours: My Active Orders 09/05/19 11:49 Head wo Cont [CT] Stat - Assessment/Plan Last 24 Hours: My Active Orders 09/05/19 11:49 Head wo Cont [CT] Stat
--- NOTE | 2019-09-06 06:40 | CT ---
Head CT Technique: Multiple axial sections through the brain were obtained. Intravenous contrast was not utilized. Comparison: Prior head CT study of 08/28/09 is available. Findings: Ventricles along with basal cisterns and sulci over the convexities are within normal limits for the patient's age. Diminished density is noted within the periventricular white matter. No other abnormal parenchymal densities are seen. No evidence of intracranial hemorrhage. No midline shift or mass-effect is seen. Bone window settings were reviewed. No acute calvarial finding is seen. Visualized paranasal sinuses and mastoid sinuses show nothing acute. Impression: 1. Diminished density noted within portions of the periventricular white matter. Differential as described on preliminary report by [facility] including chronic small vessel disease, viral disease, Lyme's disease, chronic migraine headaches can also cause this finding. Less likely vasculitis and other demyelinating processes such as multiple sclerosis are also within the differential. MRI study which should be performed without and with contrast is suggested to see if this is acute. 2. No additional abnormality is identified on noncontrast head CT study. Diagnostic code #3 This report was dictated in MDT I agree with preliminary report from [facility], finalized on 09/05/19, 1:49 PM Central Daylight Time
== END 2019-09-05 13:06 | disposition home or self-care (01) ==
LOC: JD.ED 11:38
DX: S06.0X9A Concussion with loss of consciousness of unspecified duration, initial encounter (principal); E66.9 Obesity, unspecified; Z68.35 Body mass index [BMI] 35.0-35.9, adult; Z79.82 Long term (current) use of aspirin; Z79.899 Other long term (current) drug therapy; Z88.1 Allergy status to other antibiotic agents; Z91.011 Allergy to milk products; W22.8XXA Striking against or struck by other objects, initial encounter
CPT/HCPCS: 70450; 70450-26; 99282; 99283-25

== ENCOUNTER 2021-10-29 16:02 | Emergency (ER) | payer OTHER ==
[2021-10-29 16:30] VITALS: BP 142/94; PULSE 63
[2021-10-29] MEDS ORDERED: Alum Hydrox/Mag Hydrox/Simeth 30 ML, Lidocaine 2% 15 ML PO STA ×2 (17:26)
== END 2021-10-29 18:19 | disposition home or self-care (01) ==
LOC: JD.ED 16:02
DX: K21.9 Gastro-esophageal reflux disease without esophagitis (principal); E66.9 Obesity, unspecified; Z68.39 Body mass index [BMI] 39.0-39.9, adult; Z88.1 Allergy status to other antibiotic agents; Z91.011 Allergy to milk products; Z79.899 Other long term (current) drug therapy; Z86.16 Personal history of COVID-19; Z90.49 Acquired absence of other specified parts of digestive tract
CPT/HCPCS: 93005; 99284; A9270